=== PATIENT | female | born 1955 | race Caucasian/White ===

== ENCOUNTER → 2017-10-10 07:15 | Outpatient (CLI) | payer OTHER, SELFPAY ==
[2017-10-10 07:56] LABS: Add Manual Diff / Slide Review NO; Basophils Percent Auto 0.9 % (0-2); Eosinophils Percent Auto 2.6 % (2-4); Hematocrit 44.9 % (36-46); Hemoglobin 15.2 g/dL (12.0-16.0); Lymphocytes Percent Auto 30.1 % (25-40); Mean Corpuscular HGB Conc 33.9 % (30-36); Mean Corpuscular Hemoglobin 29.9 PG (26-34); Mean Corpuscular Volume 88.3 fL (80-100); Monocytes Percent Auto 8.9 % (3-14); Neutrophils Absolute Auto 2800 /uL (3000-5900); Neutrophils Percent Auto 57.5 % (50-75); Platelet Count 244 X10^3/uL (150-400); Red Blood Cell Count 5.09 X10^6/uL (4.0-5.2); Red Cell Distribution Width 12.9 % (11.6-14.8); White Blood Cell Count 4.9 X10^3/uL (4.5-11.0)
[2017-10-10 08:35] LABS: Alanine Aminotransferase 41 IU/L (9-52); Albumin 4.2 g/dL (3.5-5.0); Albumin Globulin Ratio 1.4 (1.0-2.8); Alkaline Phosphatase 78 U/L (38-126); Aspartate Aminotransferase 29 IU/L (14-36); BUN Creatinine Ratio 18.6 (6-22); Bilirubin Total 0.5 mg/dL (0.2-1.3); Blood Urea Nitrogen 13 mg/dL (7-17); Calcium 9.2 mg/dL (8.4-10.2); Carbon Dioxide 30 mmol/L (22-32); Chloride 101 mmol/L (98-107); Cholesterol 244 mg/dL (140-199); Estimated Glomerular Filt Rate > 60.0 mL/min (>60); Globulin 3.1 g/dL (1.7-4.1); Glucose 103 mg/dL (80-110); HDL Cholesterol 55 mg/dL (40-60); HEMOLYSIS < 15 (0-50); LDL Cholesterol Calculated 168 mg/dL (<100); Potassium 4.8 mmol/L (3.4-5.1); Sodium 141 mmol/L (137-145); Total Protein 7.3 g/dL (6.3-8.2); Triglycerides 103 mg/dL (35-150)
== END ==
PROVIDERS: PCP Family Medicine; Visit Provider Family Medicine
DX: I10 Essential (primary) hypertension (principal)
CPT/HCPCS: 36415; 80053; 80061; 85025

== ENCOUNTER → 2018-01-04 13:14 | Outpatient (CLI) | payer OTHER, SELFPAY ==
[2018-01-04 13:56] LABS: Appearance Urine UA SL CLOUDY; Bilirubin Urine UA NEGATIVE (NEGATIVE); Color Urine UA YELLOW; Glucose Urine UA NEGATIVE (Normal); Ketones Urine UA NEGATIVE (NEGATIVE); Leukocyte Esterase Urine UA 1+ (NEGATIVE); Nitrite Urine UA Negative (Negative); Occult Blood Urine UA 1+ (Negative); Protein Urine UA NEGATIVE (Negative); Urobilinogen Urine UA 0.2 E.U./dL (0.2)
[2018-01-04 14:08] LABS: Bacteria Urine Many (>30); Culture Indicated Urine Specimen Cultured; RBC Urine 1-5/HPF (0-5/HPF); Squamous Epithelial Cell Urine 0-1 /HPF; WBC Urine 10-30/HPF (0-5/HPF)
== END ==
PROVIDERS: Visit Provider Internal Medicine
DX: R39.9 Unspecified symptoms and signs involving the genitourinary system (principal)
CPT/HCPCS: 81001; 87077; 87086

== ENCOUNTER → 2018-06-19 14:29 | Outpatient (CLI) | payer OTHER, SELFPAY ==
--- NOTE | 2018-06-19 14:30 | DI.RAD.S_ITS ---
PROCEDURE: XR HAND RT MIN 3V INDICATIONS: right 3rd digit pain and swelling TECHNIQUE: 3 views of the hand(s) acquired. COMPARISON: None. FINDINGS: Bones: No fractures or dislocations. Carpal bones are normally aligned. No suspicious bony lesions. Soft tissues: No suspicious soft tissue calcifications. IMPRESSION: No fractures. No radiographic evidence of arthritic change. Dictated by: Carol Peguero M.D. on 06/19/2018 at 16:36 Approved by: Carol Peguero M.D. on 06/19/2018 at 16:40
== END ==
PROVIDERS: PCP Internal Medicine; Visit Provider Internal Medicine
DX: M79.644 Pain in right finger(s) (principal); M79.89 Other specified soft tissue disorders
CPT/HCPCS: 73130

== ENCOUNTER → 2018-09-27 08:00 | Outpatient (CLI) | payer OTHER, SELFPAY ==
--- NOTE | 2018-09-27 08:02 | DI.US.S_ITS ---
LIMITED ULTRASOUND OF LEFT BREAST: 09/27/2018 CLINICAL: Palpable left breast lump. Comparison is made to exams dated: 09/27/2018 mammogram - [facility], 11/22/2017 mammogram, 01/13/2016 mammogram, 01/09/2015 mammogram, and 06/22/2011 mammogram - [facility]. Color flow and real-time ultrasound of the left breast 1-4 o'clock region were performed. Damian scale images of the real-time examination were reviewed. Targeted ultrasound was performed in the region of the patient's reported focal palpable abnormality of the outer left breast from 1:00-4:00 position, with the patient localizing the palpable abnormality to the 4:00 posiiton at time of ultrasound. No underlying breast mass or abnormality is identified in the outer left breast from 1:00-4:00 position. The left breast implant is only partially imaged on this exam, and is partially obscured by reverberation artifact. IMPRESSION: BENIGN 1) No ultrasound findings to explain patient's reported focal palpable abnormality of the outer left breast at the site indicated by the patient. Recommend clinical follow-up for further evaluation and management of the patient's reported symptoms. 2) There is no sonographic evidence of malignancy in the imaged areas of the left breast. Return to annual screening mammography is recommended. The patient is advised to monitor her breasts and to return sooner for re-evaluation should she feel anything grow or change. This exam was interpreted at Station ID: [id number]. Electronically Signed By: Varun Glover M.D. ecl/:09/27/2018 09:18:43 letter sent: Clinical Evaluation Ultrasound BI-RADS: 2 Benign
--- NOTE | 2018-09-27 08:02 | DI.MG.S_ITS ---
BILATERAL DIGITAL DIAGNOSTIC MAMMOGRAM 3D/2D WITH AUGMENTATION: 09/27/2018 CLINICAL: Left breast mass. Comparison is made to exams dated: 11/22/2017 mammogram, 01/13/2016 mammogram, 01/09/2015 mammogram, and 06/22/2011 mammogram - [facility]. There are scattered fibroglandular elements in both breasts. There is a triangular marker overlying the skin of the upper outer left breast at the site of the patient's reported palpable abnormality. There is no underlying mammographic abnormality. There are bilateral breast implants. There is a bulge of the medial aspect of the left breast implant suggesting possible rupture. No other significant masses, calcifications, or other findings are seen in either breast. IMPRESSION: INCOMPLETE: NEEDS ADDITIONAL IMAGING EVALUATION 1) No mammographic abnormality to correlate with the site of the patient's reported focal palpable abnormality of the upper outer left breast. Targeted diagnostic ultrasound recommended for further evaluation, which will be performed immediately following this exam. 2) Bilateral breast implants, with a bulge of the medial aspect of the left breast implant suggesting possible rupture. This exam was interpreted at Station ID: [id number]. NOTE: For mammograms, a report in lay terms will be sent to the patient. Approximately 15% of breast malignancies will not be visualized mammographically. In the management of a palpable breast mass, a negative mammogram must not discourage biopsy of a clinically suspicious lesion. Electronically Signed By: Varun Glover M.D. ecl/:09/27/2018 09:14:26 ACR BI-RADS Category 0: Incomplete [id number]
== END ==
PROVIDERS: PCP Nurse Practitioner Family; Visit Provider Nurse Practitioner Family
DX: R92.8 Other abnormal and inconclusive findings on diagnostic imaging of breast (principal); N63.21 Unspecified lump in the left breast, upper outer quadrant; Z98.82 Breast implant status
CPT/HCPCS: 76642; 77066; G0279

== ENCOUNTER 2019-04-04 09:37 | Emergency (ER) | payer OTHER, SELFPAY ==
[2019-04-04 09:50] VITALS: BP 188/108; PULSE 83; RESP 16; TEMP 36.4; O2SAT 97; BMI 28.3
--- NOTE | 2019-04-04 10:04 | DI.US.S_ITS ---
PROCEDURE: US PERIPH VENOUS LOW EXTREM LT INDICATIONS: SWELLING AND PAIN TECHNIQUE: Real-time imaging, as well as color and pulse Doppler interrogation, were performed of the lower extremity deep veins from the inguinal ligament to the popliteal fossa. COMPARISON: None. FINDINGS: The common femoral, femoral and popliteal veins are normally compressible, and free of intraluminal thrombus. Color and pulse Doppler demonstrate normal phasic intraluminal flow. There is normal augmentation response to distal compression maneuver. IMPRESSION: Negative left lower extremity duplex ultrasound for DVT. Dictated by: Daron Marin M.D. on 04/04/2019 at 11:13 Approved by: Daron Marin M.D. on 04/04/2019 at 11:13
--- NOTE | 2019-04-04 10:08 | ED_ITS ---
HPI - Extremity Problem General Chief complaint: Extremity Problem,Nontraumatic Stated complaint: possible blood clot left leg Time Seen by Provider: 04/04/19 09:45 Source: patient Mode of arrival: Ambulatory Limitations: no limitations History of Present Illness HPI Narrative: Patient comes emergency department complaining of pain in her left lower leg and ankle area. She states that she has noticed some swelling and bruised appearance, but has had no trauma. She has a history of DVT and is concerned that she has developed another one. Patient denies fevers or chills. No chest pain or shortness breath. no bruising or bleeding anywhere else. No other complaints at this time. Related Data Home Medications Medication Instructions Recorded Confirmed CA PANTOTHENATE/FOLIC ACID/VIT 1 tab PO AMINS #0 09/05/11 09/19/18 (MULTIVITAMIN) Calcium Carbonate/Vitamin D 1 cap PO AMINS #0 09/05/11 09/19/18 (#CALCIUM) IBUPROFEN (#MOTRIN / ADVIL) 200 mg PO PRN #0 09/05/11 09/19/18 Inulin (Metamucil) 1 pow PO QDAY #0 12/20/11 09/19/18 biotin 5 mg tablet mg PO tab 06/19/18 09/19/18 magnesium oxide 400 mg PO BID cap 06/19/18 09/19/18 Previous Rx's Medication Instructions Recorded esomeprazole magnesium 20 mg 20 mg PO BID #180 cap 11/21/18 capsule,delayed release metoprolol tartrate 25 mg tablet 25 mg PO BID #180 tab 11/21/18 Allergies Allergy/AdvReac Type Severity Reaction Status Date / Time adhesive [ADHESIVE] Allergy Mild BLISTERS Verified 09/19/18 14:02 AND SCARRING adhesive tape [ADHESIVE TAPE] Allergy Mild Verified 09/19/18 14:02 codeine [CODEINE] Allergy Mild projectile Verified 09/19/18 14:02 vomiting diphenhydramine Allergy Mild makes her Verified 09/19/18 14:02 [DIPHENHYDRAMINE] feel like she's going crazy levofloxacin [LEVOFLOXACIN] Allergy Mild vein Verified 09/19/18 14:02 itching, burning,redness Penicillins [PENICILLINS] Allergy Mild severe Verified 09/19/18 14:02 hives prochlorperazine Allergy Mild projectile Verified 09/19/18 14:02 [PROCHLORPERAZINE] vomiting, feels like going crazy Sulfa (Sulfonamide Allergy Mild itching Verified 09/19/18 14:02 Antibiotics) after 5 [SULFA (SULFONAMIDE days on it ANTIBIOTICS)] morphine [MORPHINE] Allergy Unknown Verified 09/19/18 14:02 non stick gauze pads Allergy Unknown Uncoded 09/19/18 14:02 novacaine Allergy Unknown Uncoded 09/19/18 14:02 suture Allergy Unknown Uncoded 09/19/18 14:02 Review of Systems Constitutional Constitutional: Denies chills, Denies fatigue, Denies fever(s), Denies frequent falls, Denies lethargy and Denies weakness Eyes Eyes: Denies change in vision, Denies eye discharge, Denies irritation and Denies loss of vision ENT Ears, Nose, Mouth, and Throat: Denies change in voice, Denies dizziness, Denies neck pain, Denies sore throat and Denies throat swelling Cardiovascular Cardiovascular: Denies chest pain, Denies irregular heart rhythm, Denies lightheadedness, Denies palpitations, Denies dyspnea, Denies dyspnea on exertion and Denies orthopnea Respiratory Respiratory: Denies cough, Denies dyspnea, Denies dyspnea on exertion and Denies wheezing Gastrointestinal Gastrointestinal: Denies abdominal pain, Denies change in bowel habits, Denies diarrhea, Denies nausea and Denies vomiting Genitourinary Genitourinary: Denies hematuria, Denies flank pain, Denies urinary incontinence and Denies urinary urgency Musculoskeletal Musculoskeletal: Denies back pain, Denies muscle weakness, Denies neck pain, Denies numbness and Denies tingling Comments: Leg pain Integumentary/Breasts Skin/Breast: Denies pruritus, Denies erythema, Denies rash and Denies wounds Neurologic Neurologic: Denies behavioral changes, Denies confusion, Denies dizziness, Denies frequent falls, Denies loss of vision, Denies numbness, Denies tingling and Denies weakness Psychiatric Psychiatric: Denies anxiety, Denies behavioral changes, Denies confusion, Denies depression, Denies homicidal ideation and Denies suicidal ideation Endocrine Endocrine: Denies fatigue, Denies flushing and Denies palpitations Hematologic/Lymphatic Hematologic/Lymphatic: Denies easy bruising Allergic/Immunologic Allergic/Immunologic: Denies urticaria, Denies throat swelling and Denies wheezing Patient History Medical History Cystocele with rectocele (Chronic 07/05/17) Diverticular disease of colon (Inactive 12/03/02) GERD (gastroesophageal reflux disease) (Chronic 06/17/11) Left knee injury (Resolved 05/20/13) 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) Unspecified essential hypertension (Chronic) Surgical History History of bilateral salpingo-oophorectomy (BSO) (Resolved 12/20/11) History of colonoscopy (Resolved 03/30/16) History of esophagogastroduodenoscopy (EGD) (Resolved 03/30/16) Status post small bowel resection (Resolved 09/04/11) Social History marital status: lives independently: Yes caregiver/support person: No Smoking Status: Former smoker alcohol intake: current alcohol intake frequency: a few times a week Alcohol type: wine Substance Use Type: does not use Exam Initial Vital Signs Initial Vital Signs: Vital Signs Temperature 97.5 F L 04/04/19 09:50 Pulse Rate 83 04/04/19 09:50 Respiratory Rate 16 04/04/19 09:50 Blood Pressure 188/108 H 04/04/19 09:50 Pulse Oximetry 97 04/04/19 09:50 Const General: cooperative and well developed Nutritional Appearance: well nourished Orientation: alert, awake, oriented x3 and not confused [facility] Head: normocephalic and atraumatic Ears: external ears normal Nose: external nose normal and No nasal discharge Face and sinus: face symmetric and No dry mucous membranes Mouth: oral mucosae normal and moist mucous membranes Teeth and gingiva: dentition normal Eyes General: appearance normal, both eyes and all related structures Eyelids: eyelids normal Conjunctivae: conjunctivae normal Sclera: sclerae normal Pupils: PERRL EOM: EOM intact bilaterally Neck Neck: normal visual inspection, trachea midline, No lymphadenopathy, No midline deformity and No JVD Lymphatic: No lymphedema Chest Chest: normal inspection of the chest Resp Effort & Inspection: normal respiratory effort, able to speak in complete sentences, no respiratory distress and no use of accessory muscles Auscultation: clear to auscultation bilaterally, no rales, no rhonchi and no wheezes Cardio Rate: regular rate Rhythm: regular rhythm Heart Sounds: no click, no gallops, no murmurs and no rubs Pulses: normal peripheral pulses GI Inspection: non-distended Palpation: soft, no hepatosplenomegaly, No guarding, No pulsatile mass and No tender Auscultation: normal bowel sounds Back/Spine/Pelvis Back: No CVA tenderness Cervical Spine: cervical ROM normal and No pain with cervical ROM Thoracic/Lumbar Spine: thoracic and lumbar spine normal to inspection Skin General: no rashes or lesions noted, No jaundice and No petechiae Neuro General: alert, oriented x3, gait normal and no focal motor deficits Speech: speech normal Extrem General: full ROM and no calf tenderness Other: Patient has an appearance of bruising and swelling on the anterior aspect and lateral aspect of her left ankle. No palpable cords. Psych Appearance: well kempt Mental Status: mental status grossly normal Attitude: cooperative Thought Content: normal and suicidality Judgment: judgment good Course Course Course Narrative: Patient was worked up with ultrasound of her left lower extremity, which was negative for DVT. We have discussed home management of the symptoms, as well as the usual indications for return. Orders Ordered: ED Orders 04/04/19 10:04 US [facility] venous low extrem lt Stat Vital Signs Vital signs: Vital Signs - 8 hr 04/04/19 09:50 Temperature 97.5 F L Pulse Rate 83 Respiratory Rate 16 Blood Pressure 188/108 H Pulse Oximetry 97 MDM - Extremity (Nontraumatic) Medical Records Attestation: I reviewed the patient's medical records. Imaging Data Venous US: Radiologist's impression: PROCEDURE: US [facility] VENOUS LOW EXTREM LT INDICATIONS: SWELLING AND PAIN TECHNIQUE: Real-time imaging, as well as color and pulse Doppler interrogation, were performed of the lower extremity deep veins from the inguinal ligament to the popliteal fossa. COMPARISON: None. FINDINGS: The common femoral, femoral and popliteal veins are normally compressible, and free of intraluminal thrombus. Color and pulse Doppler demonstrate normal phasic intraluminal flow. There is normal augmentation response to distal compression maneuver. IMPRESSION: Negative left lower extremity duplex ultrasound for DVT. Dictated by: Daron Marin M.D. on 04/04/2019 at 11:13 Approved by: Daron Marin M.D. on 04/04/2019 at 11:13 Discharge Plan Departure Patient Disposition: Home Clinical Impression: Contusion Qualifiers: Encounter type: initial encounter Contusion area: ankle Laterality: left Qualified Code(s): S90.02XA - Contusion of left ankle, initial encounter Discharge Date/Time: 04/04/19 12:08 Instructions: DI for Contusion Activity Restrictions/Additional Instructions: Your ultrasound is negative for blood clot. It is not clear what caused the bruising and swelling of your ankle. However, there is no evidence of an emergent condition at this time. Please follow up with your doctor, as needed. Prescriptions: No Action CA PANTOTHENATE/FOLIC ACID/VIT (MULTIVITAMIN) 1 tab PO AMINS Qty: 0 RF: 0 Calcium Carbonate/Vitamin D (#CALCIUM) 1 cap PO AMINS Qty: 0 RF: 0 IBUPROFEN (#MOTRIN / ADVIL) 200 mg PO PRN Qty: 0 RF: 0 Inulin (Metamucil) 1 pow PO QDAY Qty: 0 RF: 0 metoprolol tartrate 25 mg tablet 25 mg PO BID Qty: 180 RF: 1 esomeprazole magnesium [Nexium] 20 mg capsule,delayed release(DR/EC) 20 mg PO BID Qty: 180 RF: 1 magnesium oxide 400 mg capsule 400 mg PO BID RF: 0 biotin 5 mg tablet PO RF: 0 Referrals: Samuel Underwood ARNP [Primary Care Provider] -
[2019-04-04 11:10] VITALS: BP 141/90; PULSE 84; RESP 16; O2SAT 92
== END 2019-04-04 12:08 | disposition home or self-care (01) ==
PROVIDERS: Emergency Provider Emergency Medicine; PCP Nurse Practitioner Family
DX: S90.02XA Contusion of left ankle, initial encounter (principal); M79.662 Pain in left lower leg
CPT/HCPCS: 93971; 99282; 99283

== ENCOUNTER 2019-06-02 08:28 | Emergency (ER) | payer OTHER, SELFPAY ==
[2019-06-02] VITALS (8 sets, daily range): BP systolic 123–180; BP diastolic 68–87; PULSE 73–81; RESP 14–20; TEMP 36.3–36.7; O2SAT 95–99; BMI 28.3
--- NOTE | 2019-06-02 08:38 | DI.RAD.S_ITS ---
PROCEDURE: XR SOFT TISSUE NECK INDICATIONS: Possible epiglottitis TECHNIQUE: 2 views of the neck were acquired. COMPARISON: None. FINDINGS: Airway: The airway appears patent. Soft tissues: In this patient with this given history, scrutiny is given to the epiglottis. The epiglottis is not well displayed on the lateral image, as is superiorly angulated and compressing the valleculae. Prevertebral soft tissues are normal in thickness. The aryepiglottic folds appear normal. No soft tissue gas. Bones: No suspicious bony lesions. Visualized cervical spine is normally aligned. Age-appropriate lower cervical spine degenerative changes are seen. IMPRESSION: The epiglottis is not well-seen on this study. If clinically appropriate, please consider a dedicated CT of the neck with IV contrast for further evaluation. Dictated by: Ariel Rinaldi M.D. on 06/02/2019 at 8:20 Approved by: Ariel Rinaldi M.D. on 06/02/2019 at 8:22
[2019-06-02 08:49] LABS: Add Manual Diff / Slide Review NO; Basophils Absolute Auto 100 /uL (0-100); Basophils Percent Auto 0.9 % (0-2); Eosinophils Absolute Auto 200 /uL (0-450); Hematocrit 44.9 % (36-46); Hemoglobin 15.2 g/dL (12.0-16.0); Lymphocytes Absolute Auto 1900 /uL (1100-4500); Lymphocytes Percent Auto 17.2 % (25-40); Mean Corpuscular HGB Conc 33.9 % (30-36); Mean Corpuscular Volume 88.5 fL (80-100); Monocytes Absolute Auto 800 /uL (0-900); Monocytes Percent Auto 7.4 % (3-14); Neutrophils Absolute Auto 7900 /uL (1500-7000); Neutrophils Percent Auto 72.5 % (50-75); Platelet Count 266 X10^3/uL (150-400); Red Blood Cell Count 5.07 X10^6/uL (4.0-5.2); Red Cell Distribution Width 13.3 % (11.6-14.8); White Blood Cell Count 10.8 X10^3/uL (4.5-11.0)
[2019-06-02] MEDS: methylPREDNISolone 125 MG/2 ML VIAL IV (08:49)
[2019-06-02] MEDS: SODIUM CHLORIDE 0.9% 1,000 ML 125 ML IV (08:49)
[2019-06-02] MEDS: EPINEPHrine 1 MG/ML 0.3 MG IM (08:51)
--- NOTE | 2019-06-02 08:52 | ED.URI ---
HPI - URI/Sore Throat General Chief Complaint: Upper Respiratory Symptoms Stated Complaint: obstructed airway Time Seen by Provider: 06/02/19 08:37 Source: patient and family Mode of arrival: Wheelchair Limitations: other (Problems breathing) History of Present Illness HPI Narrative: Most of the HPI was provided by who is at bedside. Patient is a 63-year-old female. Past couple days has had URI like symptoms. Congestion. Cough. Has been taking DayQuil and NyQuil. This morning started having symptoms in her throat in fullness. Was coughing. Had a fairly sudden onset of problems breathing and swallowing. Arrived in a wheelchair. A tripod position. Afebrile. Maintaining airway however had a muffled voice. Could not lay flat. Related Data Home Medications Medication Instructions Recorded Confirmed CA PANTOTHENATE/FOLIC ACID/VIT 1 tab PO AMINS #0 09/05/11 09/19/18 (MULTIVITAMIN) Calcium Carbonate/Vitamin D 1 cap PO AMINS #0 09/05/11 09/19/18 (#CALCIUM) IBUPROFEN (#MOTRIN / ADVIL) 200 mg PO PRN #0 09/05/11 09/19/18 Inulin (Metamucil) 1 pow PO QDAY #0 12/20/11 09/19/18 biotin 5 mg tablet mg PO tab 06/19/18 09/19/18 magnesium oxide 400 mg PO BID cap 06/19/18 09/19/18 Previous Rx's Medication Instructions Recorded esomeprazole magnesium 20 mg 20 mg PO BID #180 cap 11/21/18 capsule,delayed release metoprolol tartrate 25 mg tablet 25 mg PO BID #180 tab 11/21/18 epinephrine [EpiPen 2-Cholo] 0.3 mg IM Q15M PRN #1 each 06/02/19 prednisone 40 mg PO DAILY 5 Days #10 tab 06/02/19 Allergies Allergy/AdvReac Type Severity Reaction Status Date / Time adhesive [ADHESIVE] Allergy Mild BLISTERS Verified 09/19/18 14:02 AND SCARRING adhesive tape [ADHESIVE TAPE] Allergy Mild Verified 09/19/18 14:02 codeine [CODEINE] Allergy Mild projectile Verified 09/19/18 14:02 vomiting diphenhydramine Allergy Mild makes her Verified 09/19/18 14:02 [DIPHENHYDRAMINE] feel like she's going crazy levofloxacin [LEVOFLOXACIN] Allergy Mild vein Verified 09/19/18 14:02 itching, burning,redness Penicillins [PENICILLINS] Allergy Mild severe Verified 09/19/18 14:02 hives prochlorperazine Allergy Mild projectile Verified 09/19/18 14:02 [PROCHLORPERAZINE] vomiting, feels like going crazy Sulfa (Sulfonamide Allergy Mild itching Verified 09/19/18 14:02 Antibiotics) after 5 [SULFA (SULFONAMIDE days on it ANTIBIOTICS)] morphine [MORPHINE] Allergy Unknown Verified 09/19/18 14:02 non stick gauze pads Allergy Unknown Uncoded 09/19/18 14:02 novacaine Allergy Unknown Uncoded 09/19/18 14:02 suture Allergy Unknown Uncoded 09/19/18 14:02 Review of Systems Constitutional Constitutional: Denies fever(s) ENT Ears, Nose, Mouth, and Throat: Denies vertigo, Denies mouth lesions, Reports nasal congestion, Reports sinus pressure, Reports sore throat, Reports throat swelling and Denies tongue swelling Cardiovascular Cardiovascular: Denies chest pain and Reports dyspnea Respiratory Respiratory: Denies cough and Reports dyspnea Gastrointestinal Gastrointestinal: Denies abdominal pain, Denies nausea and Denies vomiting Integumentary/Breasts Skin/Breast: Denies lesions and Denies rash Neurologic Neurologic: Denies behavioral changes and Denies vertigo Psychiatric Psychiatric: Denies behavioral changes Hematologic/Lymphatic Hematologic/Lymphatic: Denies easy bleeding and Denies easy bruising Allergic/Immunologic Allergic/Immunologic: Reports throat swelling and Denies tongue swelling Patient History Medical History Cystocele with rectocele (Chronic 07/05/17) Diverticular disease of colon (Inactive 12/03/02) GERD (gastroesophageal reflux disease) (Chronic 06/17/11) Left knee injury (Resolved 05/20/13) 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) Unspecified essential hypertension (Chronic) Social History marital status: lives independently: Yes caregiver/support person: No Smoking Status: Former smoker alcohol intake: current Smoking Status: Former smoker alcohol intake frequency: a few times a week Alcohol type: wine Substance Use Type: does not use Exam Initial Vital Signs Initial Vital Signs: Vital Signs Pulse Rate 79 06/02/19 09:00 Respiratory Rate 20 06/02/19 09:00 Blood Pressure 148/87 H 06/02/19 09:00 Pulse Oximetry 97 06/02/19 09:00 Const General: cooperative, well groomed and No acute distress Limitations: mental status not altered HENMT Head: normal to inspection and normocephalic Nose: external nose normal Face and sinus: normal facial exam Mouth: moist mucous membranes Throat: uvula midline and uvular edema Resp Effort & Inspection: normal respiratory effort Auscultation: clear to auscultation bilaterally Cardio Rate: regular rate Rhythm: regular rhythm Skin Lesions: no lesions Rashes: no rashes Neuro General: alert and awake Cognition: normal cognition Speech: speech normal Extrem General: normal to inspection and capillary refill normal Psych Appearance: grossly normal and well kempt Course Orders Ordered: ED Orders 06/02/19 08:38 XR soft tissue neck Stat 06/02/19 08:41 Complete Blood Count AUTO DIFF Stat Comprehensive Metabolic Panel Stat Lipase Stat 06/02/19 11:58 Influenza A & B (PCR) Stat Sodium Chloride (Normal Saline 0.9%) 1,000 mls @ 125 mls/hr IV CONT KELLY Last Admin: 06/02/19 08:49 Dose: 125 mls/hr Documented by: THEE Discontinued Medications Epinephrine (Epinephrine Racemic) 0.5 ml INH NOW ONE Stop: 06/02/19 09:23 Last Admin: 06/02/19 09:35 Dose: 0.5 ml Documented by: SANTY Epinephrine HCl (Adrenalin) 0.3 mg IM NOW ONE Stop: 06/02/19 08:42 Last Admin: 06/02/19 08:51 Dose: 0.3 mg Documented by: THEE Famotidine (Pepcid) 20 mg in 50 mls @ 200 mls/hr IV NOW ONE Stop: 06/02/19 08:52 Last Infusion: 06/02/19 09:18 Dose: 0 mls/hr Documented by: Admin: 06/02/19 08:53 Dose: 200 mls/hr Documented by: THEE Ketorolac Tromethamine (Toradol) 30 mg IV NOW ONE Stop: 06/02/19 10:16 Last Admin: 06/02/19 10:18 Dose: 30 mg Documented by: THEE Methylprednisolone (Solu-Medrol 125 Mg Vial) 125 mg IV NOW ONE Stop: 06/02/19 08:39 Last Admin: 06/02/19 08:49 Dose: 125 mg Documented by: THEE Vital Signs Vital signs: Vital Signs - 8 hr 06/02/19 09:00 06/02/19 09:15 06/02/19 09:36 Temperature 97.3 F L Pulse Rate 79 79 76 Respiratory Rate 20 20 16 Blood Pressure 180/84 H Blood Pressure [Left Arm] 148/87 H Pulse Oximetry 97 97 98 06/02/19 09:51 06/02/19 10:15 06/02/19 11:30 Temperature Pulse Rate 81 73 81 Respiratory Rate 20 17 14 Blood Pressure Blood Pressure [Left Arm] 154/82 H 137/68 123/69 Pulse Oximetry 97 95 96 MDM - URI/Sore Throat Lab Data Attestation: I reviewed the patient's lab results. Result diagrams: 06/02/19 08:41 06/02/19 08:41 Labs: Lab Results 06/02/19 06/02/19 06/02/19 Range/Units 08:41 08:41 11:58 WBC 10.8 (4.5-11.0) X10^3/uL RBC 5.07 (4.0-5.2) X10^6/uL Hgb 15.2 (12.0-16.0) g/dL Hct 44.9 (36-46) % MCV 88.5 (80-100) fL MCH 30.0 (26-34) PG MCHC 33.9 (30-36) % RDW 13.3 (11.6-14.8) % Plt Count 266 (150-400) X10^3/uL Neut % (Auto) 72.5 (50-75) % Lymph % (Auto) 17.2 L (25-40) % Sanders % (Auto) 7.4 (3-14) % Eos % (Auto) 2.0 (2-4) % Baso % (Auto) 0.9 (0-2) % Neut # (Auto) 7900 H (5180-5368) /uL Lymph # (Auto) 1900 (4962-8041) /uL Sanders # (Auto) 800 (0-900) /uL Eos # (Auto) 200 (0-450) /uL Baso # (Auto) 100 (0-100) /uL Sodium 140 (137-145) mmol/L Potassium 4.2 (3.4-5.1) mmol/L Chloride 106 (98-107) mmol/L Carbon Dioxide 25 (22-32) mmol/L BUN 10 (7-17) mg/dL Creatinine 0.70 (0.52-1.04) mg/dL Estimated GFR > 60.0 (>60) mL/min BUN/Creatinine Ratio 14.3 (6-22) Glucose 102 (80-110) mg/dL Calcium 9.4 (8.4-10.2) mg/dL Total Bilirubin 0.6 (0.2-1.3) mg/dL AST 37 H (14-36) IU/L ALT 37 H (<35) IU/L Alkaline Phosphatase 101 (38-126) U/L Total Protein 7.7 (6.3-8.2) g/dL Albumin 4.4 (3.5-5.0) g/dL Globulin 3.3 (1.7-4.1) g/dL Albumin/Globulin Ratio 1.3 (1.0-2.8) Lipase 141 (23-300) U/L Influenza A (RT-PCR) Flu a negative (NEGATIVE) Influenza B (RT-PCR) Flu b negative (NEGATIVE) Point of Care Testing Rapid Strep A Negative Imaging Data soft tissue neck: Radiologist's Impression: [address] [address] XRay Report Signed Patient: Becki Potter LMR#: [id number] : 7Acct:[id number] Age/Sex: 63 / FDate of Service: 06/02/19 Loc: ED Accession Number: [id number] Procedure: XR soft tissue neck Ordering Provider: Alfredo Rogers D.O. PROCEDURE: XR SOFT TISSUE NECK INDICATIONS: Possible epiglottitis TECHNIQUE: 2 views of the neck were acquired. COMPARISON: None. FINDINGS: Airway: The airway appears patent. Soft tissues: In this patient with this given history, scrutiny is given to the epiglottis. The epiglottis is not well displayed on the lateral image, as is superiorly angulated and compressing the valleculae. Prevertebral soft tissues are normal in thickness. The aryepiglottic folds appear normal. No soft tissue gas. Bones: No suspicious bony lesions. Visualized cervical spine is normally aligned. Age-appropriate lower cervical spine degenerative changes are seen. IMPRESSION: The epiglottis is not well-seen on this study. If clinically appropriate, please consider a dedicated CT of the neck with IV contrast for further evaluation. Dictated by: Ariel Rinaldi M.D. on 06/02/2019 at 8:20 Approved by: Ariel Rinaldi M.D. on 06/02/2019 at 8:22 MDM Narrative Medical decision making narrative: Patient arrived try potting in the wheelchair. Was tachypneic however not hypoxic. No rash. Her only new exposure was the use of DayQuil and NyQuil for her upper respiratory symptoms. Initial review showed what appeared to be a swelling of her uvula. X-ray not definitive for epiglottitis however she is not febrile and does not have an elevated white count. After the medications her symptoms essentially resolved. She was able to lay flat. Was able to talk. Was able to sleep. Was never hypoxic during this time. I did consult anesthesia at the beginning of the event to be available in case patient needed intubated. Unsure the exact etiology of her symptoms. Could be environmental. Could be the DayQuil and NyQuil. She is allergic to Benadryl. Low suspicion for foreign body. Will send home with couple days of steroids. Also gave an EpiPen. 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 They were given strict return precautions. They expressed understanding and agreement with plan. Discharge Plan Departure Patient Disposition: Home Clinical Impression: Uvular edema Instructions: DI for Viral Upper Respiratory Infection -- Adult, DI for General Allergic Reactions Activity Restrictions/Additional Instructions: Recommend that you avoid the DayQuil and NyQuil as this may be the cause of your symptoms. Take the prednisone like we discussed. Contact your primary provider for follow-up. Return to the emergency department for any new or worsening symptoms Prescriptions: New prednisone 20 mg tablet 40 mg PO DAILY 5 Days Qty: 10 RF: 0 epinephrine [EpiPen 2-Cholo] 0.3 mg/0.3 mL auto-injector 0.3 mg IM Q15M PRN (Reason: anaphylaxis) Qty: 1 RF: 0 No Action CA PANTOTHENATE/FOLIC ACID/VIT (MULTIVITAMIN) 1 tab PO AMINS Qty: 0 RF: 0 Calcium Carbonate/Vitamin D (#CALCIUM) 1 cap PO AMINS Qty: 0 RF: 0 IBUPROFEN (#MOTRIN / ADVIL) 200 mg PO PRN Qty: 0 RF: 0 Inulin (Metamucil) 1 pow PO QDAY Qty: 0 RF: 0 metoprolol tartrate 25 mg tablet 25 mg PO BID Qty: 180 RF: 1 esomeprazole magnesium [Nexium] 20 mg capsule,delayed release(DR/EC) 20 mg PO BID Qty: 180 RF: 1 magnesium oxide 400 mg capsule 400 mg PO BID RF: 0 biotin 5 mg tablet PO RF: 0 Referrals: Samuel Underwood ARNP [Primary Care Provider] -
[2019-06-02] MEDS: FAMOTIDINE 20 MG/50 ML PIGGYBACK 200 MG IV (08:53)
[2019-06-02 08:59] LABS: Alanine Aminotransferase 37 IU/L (<35); Albumin 4.4 g/dL (3.5-5.0); Albumin Globulin Ratio 1.3 (1.0-2.8); Alkaline Phosphatase 101 U/L (38-126); Aspartate Aminotransferase 37 IU/L (14-36); BUN Creatinine Ratio 14.3 (6-22); Bilirubin Total 0.6 mg/dL (0.2-1.3); Blood Urea Nitrogen 10 mg/dL (7-17); Calcium 9.4 mg/dL (8.4-10.2); Carbon Dioxide 25 mmol/L (22-32); Chloride 106 mmol/L (98-107); Estimated Glomerular Filt Rate > 60.0 mL/min (>60); Globulin 3.3 g/dL (1.7-4.1); Glucose 102 mg/dL (80-110); HEMOLYSIS < 15 (0-50); Lipase 141 U/L (23-300); Potassium 4.2 mmol/L (3.4-5.1); Sodium 140 mmol/L (137-145); Total Protein 7.7 g/dL (6.3-8.2)
--- NOTE | 2019-06-02 09:13 | PC.NURSE ---
pt arrived to ER, unable to speak in full sentences, leaning forward for position of comfort. dr. Rogers at bedside
[2019-06-02] MEDS: RACEPINEPHRINE 0.5 ML NEB INH (09:35)
[2019-06-02] MEDS: KETOROLAC 60 MG/2 ML VIAL 30 MG IV (10:18)
[2019-06-02 12:33] LABS: Influenza A - CEPHEID Flu A NEGATIVE (NEGATIVE); Influenza B - CEPHEID Flu B NEGATIVE (NEGATIVE)
== END 2019-06-02 13:11 | disposition home or self-care (01) ==
PROVIDERS: Emergency Provider Emergency Medicine; PCP Nurse Practitioner Family
DX: K13.79 Other lesions of oral mucosa (principal); J02.9 Acute pharyngitis, unspecified; R06.00 Dyspnea, unspecified
CPT/HCPCS: 36415; 70360; 80053; 83690; 85025; 87502; 87880; 94640; 96361; 96365; 96372; 96375; 99284; 99285; J0171; J1885; J2930

== ENCOUNTER → 2019-11-20 12:53 | Outpatient (CLI) | payer OTHER, SELFPAY ==
--- NOTE | 2019-11-20 12:54 | DI.RAD.S_ITS ---
PROCEDURE: XR SHOULDER RT MIN 2V INDICATIONS: pain to R shoulder, r/o bony abnormality TECHNIQUE: 2 views of the shoulder were acquired. COMPARISON: None. FINDINGS: Bones: No fractures or dislocations. No suspicious bony lesions. Visualized ribs appear intact. Soft tissues: No suspicious soft tissue calcifications. IMPRESSION: No fracture. No osseous lesion. If symptoms and/or clinical suspicion for pathology persists, further assessment with advanced imaging (e.g. CT, MRI or bone scan) may be helpful. Dictated by: Jennifer Allan MD, PhD on 11/20/2019 at 15:33 Approved by: Jennifer Allan MD, PhD on 11/20/2019 at 15:34
== END ==
PROVIDERS: PCP Nurse Practitioner Family; Referring Provider Physician Assistant; Visit Provider Physician Assistant
DX: M25.511 Pain in right shoulder (principal)
CPT/HCPCS: 73030

== ENCOUNTER → 2019-12-31 07:09 | Outpatient (CLI) | payer OTHER, SELFPAY ==
[2019-12-31 07:56] LABS: INR 0.9 (0.9-1.3); Prothrombin Time 10.1 SECONDS (10.1-12.7)
[2019-12-31 08:01] LABS: Alanine Aminotransferase 30 IU/L (<35); Albumin 4.5 g/dL (3.5-5.0); Albumin Globulin Ratio 1.5 (1.0-2.8); Alkaline Phosphatase 88 U/L (38-126); Aspartate Aminotransferase 29 IU/L (14-36); Bilirubin Total 0.5 mg/dL (0.2-1.3); Bilirubin Unconjugated 0.3 mg/dL (0.0-1.1); Blood Urea Nitrogen 13 mg/dL (7-17); Carbon Dioxide 23 mmol/L (22-32); Chloride 106 mmol/L (98-107); Cholesterol 236 mg/dL (140-199); Creatine Kinase 93 U/L (30-135); Estimated Glomerular Filt Rate > 60.0 mL/min (>60); Globulin 3.1 g/dL (1.7-4.1); Glucose 114 mg/dL (80-110); HDL Cholesterol 47 mg/dL (40-60); HEMOLYSIS < 15 (0-50); LDL Cholesterol Calculated 160 mg/dL (<100); Magnesium 2.2 mg/dL (1.6-2.3); Potassium 4.4 mmol/L (3.4-5.1); Sodium 137 mmol/L (137-145); Total Protein 7.6 g/dL (6.3-8.2); Triglycerides 144 mg/dL (35-150)
[2019-12-31 08:11] LABS: HEMOLYSIS < 15 (0-50); Iron 73 ug/dL (37-170)
[2019-12-31 08:22] LABS: Percent Iron Saturation 23 % (15-50); Total Iron Binding Capacity 322 ug/dL (265-497); Transferrin 260 mg/dL (206-381)
[2019-12-31 08:43] LABS: TSH w/ Reflex to FT4 4.77 uIU/mL (0.47-4.68)
[2019-12-31 09:08] LABS: Free T4, Direct Thyroxine 1.02 ng/dL (0.78-2.19)
[2020-01-01 03:36] LABS: Ceruloplasmin 30.7 mg/dL (19.0-39.0)
[2020-01-01 08:11] LABS: Hepatitis B Surf Ab Qualitativ Reactive (.)
[2020-01-01 15:16] LABS: Hepatitis B Surface Antigen NEGATIVE s/c (NEGATIVE)
[2020-01-02 11:09] LABS: Smooth Muscle Antibody 8 Units (0-19)
[2020-01-02 16:36] LABS: ANA Screen, IFA Positive (.); Homogeneous Pattern >1:1280 (.)
[2020-01-03 03:36] LABS: Deamidated Gliadin IgA 3 units (0-19); Deamidated Gliadin IgG 3 units (0-19); IGA 225 mg/dL (87-352); t-Transglutaminase IgA <2 U/mL (0-3)
== END ==
PROVIDERS: PCP Internal Medicine; Referring Provider Internal Medicine; Visit Provider Internal Medicine
DX: R74.0 Nonspecific elevation of levels of transaminase and lactic acid dehydrogenase [LDH] (principal); I10 Essential (primary) hypertension; K21.9 Gastro-esophageal reflux disease without esophagitis
CPT/HCPCS: 36415; 80053; 80061; 80076; 82390; 82550; 82784; 83516; 83540; 83550; 83735; 84439; 84443; 85610; 86038; 86706; 87340

== ENCOUNTER → 2020-05-16 11:40 | Outpatient (CLI) | payer OTHER, SELFPAY ==
[2020-05-16 13:06] LABS: Add Manual Diff / Slide Review NO; Basophils Absolute Auto 0 /uL (0-100); Basophils Percent Auto 0.7 % (0-2); Eosinophils Absolute Auto 200 /uL (0-450); Eosinophils Percent Auto 3.7 % (2-4); Hematocrit 41.9 % (36-46); Hemoglobin 13.8 g/dL (12.0-16.0); Lymphocytes Absolute Auto 1400 /uL (1100-4500); Lymphocytes Percent Auto 27.3 % (25-40); Mean Corpuscular HGB Conc 32.9 % (30-36); Mean Corpuscular Volume 88.2 fL (80-100); Monocytes Absolute Auto 400 /uL (0-900); Monocytes Percent Auto 8.6 % (3-14); Neutrophils Absolute Auto 3000 /uL (1500-7000); Neutrophils Percent Auto 59.7 % (50-75); Platelet Count 200 X10^3/uL (150-400); Red Blood Cell Count 4.75 X10^6/uL (4.0-5.2); Red Cell Distribution Width 13.6 % (11.6-14.8)
[2020-05-16 13:45] LABS: Alanine Aminotransferase 21 IU/L (<35); Albumin Globulin Ratio 1.4 (1.0-2.8); Alkaline Phosphatase 81 U/L (38-126); Aspartate Aminotransferase 29 IU/L (14-36); BUN Creatinine Ratio 13.8 (6-22); Bilirubin Total 0.3 mg/dL (0.2-1.3); Blood Urea Nitrogen 8 mg/dL (7-17); Calcium 8.8 mg/dL (8.4-10.2); Carbon Dioxide 31 mmol/L (22-32); Chloride 103 mmol/L (98-107); Estimated Glomerular Filt Rate > 60.0 mL/min (>60); Globulin 2.9 g/dL (1.7-4.1); Glucose 89 mg/dL (80-110); HEMOLYSIS < 15 (0-50); Sodium 137 mmol/L (137-145); Total Protein 6.9 g/dL (6.3-8.2)
[2020-05-16 13:54] LABS: Procalcitonin < 0.05 ng/mL (<0.5)
== END ==
PROVIDERS: PCP Internal Medicine; Referring Provider Family Medicine; Visit Provider Family Medicine
DX: K57.30 Diverticulosis of large intestine without perforation or abscess without bleeding (principal); K57.92 Diverticulitis of intestine, part unspecified, without perforation or abscess without bleeding
CPT/HCPCS: 36415; 80053; 84145; 85025

== ENCOUNTER → 2020-07-14 08:15 | Outpatient (CLI) | payer OTHER, SELFPAY ==
[2020-07-14 09:08] LABS: BUN Creatinine Ratio 22.4 (6-22); Blood Urea Nitrogen 15 mg/dL (7-17); Calcium 9.3 mg/dL (8.4-10.2); Carbon Dioxide 26 mmol/L (22-32); Chloride 101 mmol/L (98-107); Estimated Glomerular Filt Rate > 60.0 mL/min (>60); Glucose 102 mg/dL (80-110); HEMOLYSIS < 15 (0-50); Potassium 4.1 mmol/L (3.4-5.1); Sodium 135 mmol/L (137-145)
[2020-07-14 09:23] LABS: Free T4, Direct Thyroxine 1.04 ng/dL (0.78-2.19)
[2020-07-14 09:37] LABS: Thyroid Stimulating Hormone 2.78 uIU/mL (0.47-4.68)
== END ==
PROVIDERS: PCP Internal Medicine; Referring Provider Internal Medicine; Visit Provider Internal Medicine
DX: I10 Essential (primary) hypertension (principal); K21.9 Gastro-esophageal reflux disease without esophagitis; K57.30 Diverticulosis of large intestine without perforation or abscess without bleeding
CPT/HCPCS: 36415; 80048; 84439; 84443

== ENCOUNTER 2021-03-11 07:30 | Outpatient (RCR) | payer OTHER, SELFPAY ==
--- NOTE | 2021-02-25 15:13 | PT.OIE ---
Current Diagnoses Other specified disorders of muscle (02/25/21) Incomplete uterovaginal prolapse (02/25/21) Past Medical History (Last Updated 02/02/21 @ 22:19 by Shelly Delarosa) Allergies Cardiac arrhythmia Cervical spine disease Chicken pox Chronic back pain Coronary artery spasm Cystocele with rectocele (07/05/17) Deep vein thrombosis Diverticular disease of colon (12/03/02) Esophageal ring Fibroids GERD (gastroesophageal reflux disease) (06/17/11) Hearing loss Hemorrhoid History of back surgery History of bilateral salpingo-oophorectomy (BSO) (12/20/11) History of breast biopsy History of section History of colonoscopy (03/30/16) History of esophagogastroduodenoscopy (EGD) (03/30/16) History of vein stripping Irritable bowel syndrome Left knee injury (05/20/13) Measles Melanoma Migraines Mumps Plantar warts Psoriasis Rubella Ruptured tympanic membrane 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) Status post Nahun fundoplication (~09/2020) Status post small bowel resection (09/04/11) Transaminitis Unspecified essential hypertension Past Surgical History (Last Updated 02/02/21 @ 22:10 by Shelly Delarosa) Anesthesia History of back surgery History of bilateral salpingo-oophorectomy (BSO) (12/20/11) History of breast biopsy History of section History of colonoscopy (03/30/16) History of esophagogastroduodenoscopy (EGD) (03/30/16) History of vein stripping Status post Nahun fundoplication (~09/2020) Status post small bowel resection (09/04/11) Visit Care Team Role Provider Type Blade Rodríguez MD Family Provider Physician Primary Care Provider Specialty: Internal Medicine Address: [address] [place] [address], [facility] [address], [place], [address] Email: [email or web address] Merna Justin MD Attending Provider Physician Referring Provider Specialty: TRAINING AND DEVELOPMENT PROFESSIONAL Address: [address] [place] [address] [address] [place] [address], [address] Email: [email or web address] Physical Therapy Initial Evaluation PT-OP-A Visit Information Start: 02/24/21 15:23 Freq: Status: Active Protocol: Document 02/25/21 07:30 AMB (Rec: 02/25/21 08:40 AMB [email or web address]) Out-Patient Physical Therapy Visit Information Visit Information Visit Type Initial Evaluation Visit Start Time 07:30 Visit Stop Time 08:15 Total Visit Minutes 45 Visit Number 1 PT-OP-B Current Condition Start: 02/24/21 15:23 Freq: Status: Active Protocol: Document 02/25/21 07:30 AMB (Rec: 02/25/21 07:58 AMB [id number]) Current Condition History of Current Condition Onset Date worse 1.5 months ago Current Complaints prolapse History of Current Condition Was diagnosed with cystocele years ago but didn't really bother her until a few months ago. 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 She quit working out with [employer] and is wanting to return to it, but has concerns about the prolapse. Would like to return to weightlifting. 2 live births, 1 vaginal, 1 . Extended pushing with the first. Multiple surgeries as below. Denies chronic constipation or chronic cough. Prior Functional Status Baseline Function- ADL's Independent Baseline Function- Mobility Independent Personal Factors Other Personal Factors That May Effect L4/L5- disc herniation, Therapy/Recovery history of small bowel resection due to hernia. Oophorectomy. PT-OP-C Subjective Start: 02/24/21 15:23 Freq: Status: Active Protocol: Document 02/25/21 07:30 AMB (Rec: 02/25/21 09:00 AMB [email or web address]) Patient Questionnaires Pelvic Pain and Urgency/Frequency Patient Symptom Scale Pelvic Pain Score 8 PT-OP-I Pelvic Floor Start: 02/24/21 15:23 Freq: Status: Active Protocol: Document 02/25/21 07:30 AMB (Rec: 02/25/21 09:00 AMB [email or web address]) Pelvic Floor Assessment Urine Pelvic Floor Surgery No Urinary Symptoms Prolapse,Falling Out Feeling/ Heavy Leakage Size Small Leakage Cause Cough,Sneeze Bowel Page Stool Chart Type 1-7 4 Pelvic Clock Pelvic Clock Other no tenderness or tightness palpated Prolapse Prolapse Comments not tested as pt had pessary in Contraction Ability Voluntary Contraction Weak Voluntary Relaxation Weak Manual Muscle Testing Left 1 Manual Muscle Testing Right 1 Manual Muscle Testing Anterior 1 Manual Muscle Testing Posterior 2 Muscle Endurance (Seconds) 4 Number of Quick Contractions In 10 4 Seconds PT-OP-T Assessment and Plan Start: 02/24/21 15:23 Freq: Status: Active Protocol: Document 02/25/21 07:30 AMB (Rec: 02/25/21 13:47 AMB [email or web address]) Physical Therapy Assessment Rehab Potential Rehabilitation Potential Good Evaluation Complexity Number of Personal Factors/Comorbidities 3 or More Number of Body Systems Impaired 3 Clinical Presentation at Evaluation Evolving Impairments Impairments Functional Activities,Pain, Strength Goals Two Impairment HEP Short Term Goal (STG) Becki will be independent with a pelvic floor strengthening program. STG Duration 4 weeks Subsurface Augmentee Operator Goal (LTG) Becki will be independent with a HEP including weightlifting and core strengthening while nora her pelvic floor. LTG Duration 8 weeks One Impairment prolapse Short Term Goal (STG) Becki will lift 10# from the floor to waist height without a feeling of heaviness. STG Duration 4 weeks Jail Goal (LTG) Becki will stand to [employer] food & cooking without a feeling of pelvic heaviness. 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 She had poor pelvic floor strength and poor endurance without a good ability to engage levator ani. She will benefit from pelvic floor physical therapy to improve her strength and allow her to return to her active lifestyle without worsening prolapse. Physical Therapy Plan Frequency and Duration Frequency of Treatment 1x/Week Duration of Treatment 8 weeks Plan of Care Start Date 02/25/21 Plan of Care End Date 04/22/21 Therapeutic Interventions Therapeutic Interventions Home Exercise Program,Manual Therapy,Neuromuscular Re- education,Self-Care/Home Management,Therapeutic Activities,Therapeutic Exercises Modalities Biofeedback,Electric Stimulation Next Visit Focus/Plan Next Note Type Treatment Note Next Visit Plan sEMG as needed, progress into standing, discuss return to weightlifting/core exercises with awareness of breath and pelvic floor
--- NOTE | 2021-02-25 15:14 | PT.OPPOC ---
Physical, Occupational & Speech Therapy At [facility] Current Diagnoses Other specified disorders of muscle (02/25/21) Incomplete uterovaginal prolapse (02/25/21) Visit Care Team Role Provider Type Blade Rodríguez MD Family Provider Physician Primary Care Provider Specialty: Internal Medicine Address: [address] [place] [address], [address] Email: [email or web address] Merna Justin MD Attending Provider Physician Referring Provider Specialty: CLAIMS CORRESPONDENCE CLERK Address: [address] [place] [address], [address] Email: [email or web address] Plan Of Care PT-OP-T Assessment and Plan Start: 02/24/21 15:23 Freq: Status: Active Protocol: Document 02/25/21 07:30 AMB (Rec: 02/25/21 13:47 AMB [email or web address]) Physical Therapy Assessment Rehab Potential Rehabilitation Potential Good Evaluation Complexity Number of Personal Factors/Comorbidities 3 or More Number of Body Systems Impaired 3 Clinical Presentation at Evaluation Evolving Impairments Impairments Functional Activities,Pain, Strength Goals Two Impairment HEP Short Term Goal (STG) Becki will be independent with a pelvic floor strengthening program. STG Duration 4 weeks Fpc Goal (LTG) Becki will be independent with a HEP including weightlifting and core strengthening while nora her pelvic floor. LTG Duration 8 weeks One Impairment prolapse Short Term Goal (STG) Becki will lift 10# from the floor to waist height without a feeling of heaviness. 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 She had poor pelvic floor strength and poor endurance without a good ability to engage levator ani. She will benefit from pelvic floor physical therapy to improve her strength and allow her to return to her active lifestyle without worsening prolapse. Physical Therapy Plan Frequency and Duration Frequency of Treatment 1x/Week Duration of Treatment 8 weeks Plan of Care Start Date 02/25/21 Plan of Care End Date 04/22/21 Therapeutic Interventions Therapeutic Interventions Home Exercise Program,Manual Therapy,Neuromuscular Re- education,Self-Care/Home Management,Therapeutic Activities,Therapeutic Exercises Modalities Biofeedback,Electric Stimulation Next Visit Focus/Plan Next Note Type Treatment Note Next Visit Plan sEMG as needed, progress into standing, discuss return to weightlifting/core exercises with awareness of breath and pelvic floor Plan of Care Dates Plan of Care Start Date 02/25/21 Plan of Care End Date 04/22/21 Electronically Signed by: Sadia Meadosw, PT 02/25/21 [id number] Please Sign and Return: I have reviewed this Plan of Care and certify that the skilled therapy services above are required to meet the patient?s needs. Physician Signature Date Printed Name and Credentials Clinical Instructor Signature Printed Name and Credentials
--- NOTE | 2021-03-04 15:51 | PT.OTN ---
Current Diagnoses Other specified disorders of muscle (03/04/21) Incomplete uterovaginal prolapse (03/04/21) Physical Therapy Treatment Note PT-OP-A Visit Information Start: 02/24/21 15:23 Freq: Status: Active Protocol: Document 03/04/21 07:30 AMB (Rec: 03/04/21 08:18 AMB [id number]) Out-Patient Physical Therapy Visit Information Visit Information Visit Type Treatment Note Visit Start Time 07:30 Visit Stop Time 08:15 Total Visit Minutes 45 Visit Number 2 PT-OP-B Current Condition Start: 02/24/21 15:23 Freq: Status: Active Protocol: Document 02/25/21 07:30 AMB (Rec: 02/25/21 07:58 AMB [id number]) Current Condition History of Current Condition Onset Date worse 1.5 months ago Current Complaints prolapse History of Current Condition Was diagnosed with cystocele years ago but didn't really bother her until a few months ago. 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 She quit working out with [employer] and is wanting to return to it, but has concerns about the prolapse. Would like to return to weightlifting. 2 live births, 1 vaginal, 1 . Extended pushing with the first. Multiple surgeries as below. Denies chronic constipation or chronic cough. Prior Functional Status Baseline Function- ADL's Independent Baseline Function- Mobility Independent Personal Factors Other Personal Factors That May Effect L4/L5- disc herniation, Therapy/Recovery history of small bowel resection due to hernia. Oophorectomy. PT-OP-C Subjective Start: 02/24/21 15:23 Freq: Status: Active Protocol: Document 03/04/21 07:30 AMB (Rec: 03/04/21 08:18 AMB [id number]) OP-PT Subjective Patient Comments Patient Comments Pt has been working on engaging levator more and it's going well, but fatigues after about 5 seconds. PT-OP-I Pelvic Floor Start: 02/24/21 15:23 Freq: Status: Active Protocol: Document 02/25/21 07:30 AMB (Rec: 02/25/21 09:00 AMB [id number]) Pelvic Floor Assessment Urine Pelvic Floor Surgery No Urinary Symptoms Prolapse,Falling Out Feeling/ Heavy Leakage Size Small Leakage Cause Cough,Sneeze Bowel [place] Stool Chart Type 1-7 4 Pelvic Clock Pelvic Clock Other no tenderness or tightness palpated Prolapse Prolapse Comments not tested as pt had pessary in Contraction Ability Voluntary Contraction Weak Voluntary Relaxation Weak Manual Muscle Testing Left 1 Manual Muscle Testing Right 1 Manual Muscle Testing Anterior 1 Manual Muscle Testing Posterior 2 Muscle Endurance (Seconds) 4 Number of Quick Contractions In 10 4 Seconds PT-OP-Q Treatments Start: 02/24/21 15:23 Freq: Status: Active Protocol: Document 03/04/21 07:30 AMB (Rec: 03/04/21 08:18 AMB [id number]) Therapeutic Exercises Sitting Exercises roll in roll out Resistance #2T band Reps/Minutes 2x10 long holds Reps/Minutes 2x10 Comments cues for breath to relax TA Standing Exercises sit to stand Reps/Minutes 10 PT-OP-T Assessment and Plan Start: 02/24/21 15:23 Freq: Status: Active Protocol: Document 03/04/21 07:30 AMB (Rec: 03/04/21 08:18 AMB [id number]) Physical Therapy Assessment Goals Two Impairment HEP Short Term Goal (STG) Becki will be independent with a pelvic floor strengthening program. STG Duration 4 weeks Store Team Leader Goal (LTG) Becki will be independent with a HEP including weightlifting and core strengthening while nora her pelvic floor. LTG Duration 8 weeks One Impairment prolapse Short Term Goal (STG) Becki will lift 10# from the floor to waist height without a feeling of heaviness. 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 LTG Duration 8 weeks Assessment Summary Assessment Becki has good awareness of her pelvic floor today, will want to discuss return to weightlifting at next visit. Physical Therapy Plan Next Visit Focus/Plan Next Note Type Treatment Note Next Visit Plan progress into standing, discuss return to weightlifting/core exercises with awareness of breath and pelvic floor
--- NOTE | 2021-03-11 15:45 | PT.OTN ---
Current Diagnoses Other specified disorders of muscle (03/11/21) Incomplete uterovaginal prolapse (03/11/21) Physical Therapy Treatment Note PT-OP-A Visit Information Start: 02/24/21 15:23 Freq: Status: Active Protocol: Document 03/11/21 07:31 AMB (Rec: 03/11/21 08:19 AMB [id number]) Out-Patient Physical Therapy Visit Information Visit Information Visit Type Treatment Note Visit Start Time 07:30 Visit Stop Time 08:15 Total Visit Minutes 45 Visit Number 3 PT-OP-B Current Condition Start: 02/24/21 15:23 Freq: Status: Active Protocol: Document 02/25/21 07:30 AMB (Rec: 02/25/21 07:58 AMB [id number]) Current Condition History of Current Condition Onset Date worse 1.5 months ago Current Complaints prolapse History of Current Condition Was diagnosed with cystocele years ago but didn't really bother her until a few months ago. 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 She quit working out with [employer] and is wanting to return to it, but has concerns about the prolapse. Would like to return to weightlifting. 2 live births, 1 vaginal, 1 . Extended pushing with the first. Multiple surgeries as below. Denies chronic constipation or chronic cough. Prior Functional Status Baseline Function- ADL's Independent Baseline Function- Mobility Independent Personal Factors Other Personal Factors That May Effect L4/L5- disc herniation, Therapy/Recovery history of small bowel resection due to hernia. Oophorectomy. 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 PT-OP-I Pelvic Floor Start: 02/24/21 15:23 Freq: Status: Active Protocol: Document 02/25/21 07:30 AMB (Rec: 02/25/21 09:00 AMB [email or web address]) Pelvic Floor Assessment Urine Pelvic Floor Surgery No Urinary Symptoms Prolapse,Falling Out Feeling/ Heavy Leakage Size Small Leakage Cause Cough,Sneeze Bowel [place] Stool Chart Type 1-7 4 Pelvic Clock Pelvic Clock Other no tenderness or tightness palpated Prolapse Prolapse Comments not tested as pt had pessary in Contraction Ability Voluntary Contraction Weak Voluntary Relaxation Weak Manual Muscle Testing Left 1 Manual Muscle Testing Right 1 Manual Muscle Testing Anterior 1 Manual Muscle Testing Posterior 2 Muscle Endurance (Seconds) 4 Number of Quick Contractions In 10 4 Seconds PT-OP-Q Treatments Start: 02/24/21 15:23 Freq: Status: Active Protocol: Document 03/11/21 07:30 AMB (Rec: 03/11/21 13:46 AMB [email or web address]) Therapeutic Exercises Sitting Exercises long holds Reps/Minutes 2x10 Comments cues for breath to relax TA Standing Exercises lunges Standing Exercise Name fwd Reps/Minutes 10 squats Standing Exercise Name 10# Reps/Minutes 10 sit to stand Reps/Minutes 10 PT-OP-T Assessment and Plan Start: 02/24/21 15:23 Freq: Status: Active Protocol: Document 03/11/21 07:31 AMB (Rec: 03/11/21 08:19 AMB [id number]) Physical Therapy Assessment Goals Two Impairment HEP Short Term Goal (STG) Becki will be independent with a pelvic floor strengthening program. STG Duration 4 weeks Fdc Goal (LTG) Becki will be independent with a HEP including weightlifting and core strengthening while nora her pelvic floor. LTG Duration 8 weeks One Impairment prolapse Short Term Goal (STG) Becki will lift 10# from the floor to waist height without a feeling of heaviness. 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 LTG Duration MET Assessment Summary Assessment Becki is feeling ready to be done with PT but was hesitant to d/c today, so we will put her on hold for one month so that she has time to try the new exercises see how her feelings of prolapse continue. Agreed that if we do not hear from her by April 10 that she is ok with d/c. Physical Therapy Plan Next Visit Focus/Plan Next Note Type Discharge Summary
--- NOTE | 2021-04-21 09:20 | PT.OPDS ---
Current Diagnoses Other specified disorders of muscle (03/11/21) Incomplete uterovaginal prolapse (03/11/21) Visit Care Team Role Provider Type Blade Rodríguez MD Family Provider Physician Primary Care Provider Specialty: Internal Medicine Address: [address] [place] [address], [id number] Email: [email or web address] Merna Justin MD Attending Provider Physician Referring Provider Specialty: MARKETING CONTENT MANAGER Address: [address] [place] [address], [id number] Email: [email or web address] Visit Number Visit Number 3 Discharge Summary PT-OP-B Current Condition Start: 02/24/21 15:23 Freq: Status: Active Protocol: Document 02/25/21 07:30 AMB (Rec: 02/25/21 07:58 AMB [id number]) Current Condition History of Current Condition Onset Date worse 1.5 months ago Current Complaints prolapse History of Current Condition Was diagnosed with cystocele years ago but didn't really bother her until a few months ago. 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 She quit working out with [email or web address] and is wanting to return to it, but has concerns about the prolapse. Would like to return to weightlifting. 2 live births, 1 vaginal, 1 . Extended pushing with the first. Multiple surgeries as below. Denies chronic constipation or chronic cough. Prior Functional Status Baseline Function- ADL's Independent Baseline Function- Mobility Independent Personal Factors Other Personal Factors That May Effect L4/L5- disc herniation, Therapy/Recovery history of small bowel resection due to hernia. Oophorectomy. 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 PT-OP-I Pelvic Floor Start: 02/24/21 15:23 Freq: Status: Active Protocol: Document 02/25/21 07:30 AMB (Rec: 02/25/21 09:00 AMB [email or web address]) Pelvic Floor Assessment Urine Pelvic Floor Surgery No Urinary Symptoms Prolapse,Falling Out Feeling/ Heavy Leakage Size Small Leakage Cause Cough,Sneeze Bowel [place] Stool Chart Type 1-7 4 Pelvic Clock Pelvic Clock Other no tenderness or tightness palpated Prolapse Prolapse Comments not tested as pt had pessary in Contraction Ability Voluntary Contraction Weak Voluntary Relaxation Weak Manual Muscle Testing Left 1 Manual Muscle Testing Right 1 Manual Muscle Testing Anterior 1 Manual Muscle Testing Posterior 2 Muscle Endurance (Seconds) 4 Number of Quick Contractions In 10 4 Seconds PT-OP-T Assessment and Plan Start: 02/24/21 15:23 Freq: Status: Active Protocol: Document 04/21/21 09:19 AMB (Rec: 04/21/21 09:20 AMB [id number]) Physical Therapy Assessment Goals Two Impairment HEP Short Term Goal (STG) Becki will be independent with a pelvic floor strengthening program. STG Duration 4 weeks Insurance Examining Clerk Goal (LTG) Becki will be independent with a HEP including weightlifting and core strengthening while nora her pelvic floor. LTG Duration 8 weeks One Impairment prolapse Short Term Goal (STG) Becki will lift 10# from the floor to waist height without a feeling of heaviness. 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 LTG Duration MET Assessment Summary Assessment At last visit over on month ago: Becki is feeling ready to be done with PT but was hesitant to d/c today, so we will put her on hold for one month so that she has time to try the new exercises see how her feelings of prolapse continue. Agreed that if we do not hear from her by April 10 that she is ok with d/c. Physical Therapy Plan Discharge Physical Therapy Discharge Reasons Goals Met
== END 2021-06-02 08:50 ==
LOC: PHYS 07:30
PROVIDERS: Family Provider Internal Medicine; PCP Internal Medicine; Referring Provider Specialist; Visit Provider Specialist
DX: N81.2 Incomplete uterovaginal prolapse (principal); M62.89 Other specified disorders of muscle
CPT/HCPCS: 97110; 97162

== ENCOUNTER 2021-06-18 20:15 | Emergency (ER) | payer OTHER, SELFPAY ==
[2021-06-18 20:50] VITALS: BP 170/92; PULSE 69; RESP 16; TEMP 36.9; O2SAT 97; BMI 23.9
--- NOTE | 2021-06-18 21:12 | DI.CT.S_ITS ---
PROCEDURE: CT ABDOMEN PELVIS W CON INDICATIONS: RLQ pain TECHNIQUE: After the administration of oral and IV contrast, axial sections were acquired from the lung bases to the pubic symphysis. Coronal and sagittal reformats were performed. For radiation dose reduction, the following was used: automated exposure control, adjustment of mA and/or kV according to patient size. COMPARISON: [facility], CT, ABDOMEN/PELVIS WITH CONTRAST, 09/14/2015, 9:09. FINDINGS: Image quality: Excellent. Lung bases: Left basilar scars and atelectasis. Heart: No significant findings. ABDOMEN: Liver: Normal size. Multiple hepatic hypodensities are most likely cysts. Gallbladder: Unremarkable. Biliary ducts: Unremarkable. Pancreas: Unremarkable. Spleen: Unremarkable. Adrenal Glands: Unremarkable. Kidneys and Ureters: Unremarkable. Stomach and Bowel: Stomach is distended and filled with fluid with an air-fluid level. Fluid filled small bowel loops are normal in caliber. Mildly increased small bowel mucosal enhancement. The findings suggest gastroenteritis. Appendix is normal. Diverticulosis without diverticulitis. Peritoneum: No abnormal intraperitoneal fluid. No free air. Ventral Wall: No hernia. Abdominal Nodes: No retroperitoneal or mesenteric adenopathy by size criteria. Vessels: Aorta and inferior vena cava are normal in size. PELVIS: Pelvic Organs: Unremarkable. Bladder: Unremarkable. Pelvic Nodes: No enlarged lymph nodes. Miscellaneous: No inguinal hernias are seen. Bones: Severe degenerative disc disease at L4-L5. There is a bone island in right sacrum. IMPRESSION: 1. Normal appendix. 2. Distended stomach with an air-fluid level. Fluid filled small intestine demonstrates normal caliber and mildly increased mucosal enhancement. The CT findings are suggestive of gastroenteritis. Recommend clinical correlation. 3. Diverticulosis without diverticulitis. 4. Dictated by: Mary Lawrence M.D. on 06/18/2021 at 22:40 Approved by: Mary Lawrence M.D. on 06/18/2021 at 22:46
[2021-06-18 21:28] LABS: Add Manual Diff / Slide Review NO; Basophils Absolute Auto 100 /uL (0-100); Basophils Percent Auto 1.1 % (0-2); Eosinophils Absolute Auto 200 /uL (0-450); Eosinophils Percent Auto 3.7 % (2-4); Hematocrit 41.6 % (36-46); Hemoglobin 13.8 g/dL (12.0-16.0); Lymphocytes Absolute Auto 2200 /uL (1100-4500); Lymphocytes Percent Auto 39.5 % (25-40); Mean Corpuscular HGB Conc 33.3 % (30-36); Mean Corpuscular Hemoglobin 29.6 PG (26-34); Mean Corpuscular Volume 89.1 fL (80-100); Monocytes Absolute Auto 400 /uL (0-900); Monocytes Percent Auto 7.9 % (3-14); Neutrophils Absolute Auto 2600 /uL (1500-7000); Neutrophils Percent Auto 47.8 % (50-75); Platelet Count 244 X10^3/uL (150-400); Red Blood Cell Count 4.67 X10^6/uL (4.0-5.2); Red Cell Distribution Width 12.9 % (11.6-14.8); White Blood Cell Count 5.5 X10^3/uL (4.5-11.0)
[2021-06-18 21:39] LABS: Alanine Aminotransferase 30 IU/L (<35); Albumin 4.5 g/dL (3.5-5.0); Albumin Globulin Ratio 1.3 (1.0-2.8); Alkaline Phosphatase 65 U/L (38-126); Aspartate Aminotransferase 55 IU/L (14-36); BUN Creatinine Ratio 32.1 (6-22); Bilirubin Total 0.8 mg/dL (0.2-1.3); Blood Urea Nitrogen 18 mg/dL (7-17); Calcium 9.1 mg/dL (8.4-10.2); Carbon Dioxide 29 mmol/L (22-32); Chloride 104 mmol/L (98-107); Estimated Glomerular Filt Rate > 60.0 mL/min (>60); Globulin 3.4 g/dL (1.7-4.1); Glucose 98 mg/dL (80-110); Sodium 138 mmol/L (137-145); Total Protein 7.9 g/dL (6.3-8.2)
[2021-06-18 21:40] LABS: Lipase 223 U/L (23-300); Magnesium 2.3 mg/dL (1.6-2.3)
[2021-06-18 21:41] LABS: HEMOLYSIS 221 (0-50); Potassium 5.5 mmol/L (3.4-5.1)
[2021-06-18 22:29] LABS: COVID19 -Nasal RAPID Negative (Negative)
[2021-06-18] MEDS: SODIUM CHLORIDE 0.9% 1,000 ML 1000 ML IV (22:36)
--- NOTE | 2021-06-18 23:04 | ED_ITS ---
HPI - Abdominal Pain General Chief Complaint: Abdominal Pain Stated Complaint: RIGHT SIDED GROIN PAIN Time Seen by Provider: 06/18/21 21:10 Source: patient Mode of arrival: Ambulatory History of Present Illness HPI narrative: 65-year-old woman with a history of hypertension and reflux presents with 4 days of increasing abdominal pain now beginning to localize into the right groin and causing significant pain with standing up straight and walking. She is not localizing the pain to her right lower quadrant truly is more the right inguinal area. She has a history of an incarcerated inguinal hernia that led to bowel resection previously. She reports no fevers for cough. She has not been vomiting has not had diarrhea. She does feel that her abdomen is somewhat bloated than she has distinctly uncomfortable. No cough, palpitations or acute neurologic findings. Related Data Home Medications Medication Instructions Recorded Confirmed CA PANTOTHENATE/FOLIC ACID/VIT 1 tab PO AMINS #0 09/05/11 02/04/21 (MULTIVITAMIN) Calcium Carbonate/Vitamin D 1 cap PO AMINS #0 09/05/11 02/04/21 (#CALCIUM) IBUPROFEN (#MOTRIN / ADVIL) 200 mg PO PRN #0 09/05/11 02/04/21 Inulin (Metamucil) 1 pow PO QDAY #0 12/20/11 02/04/21 biotin 5 mg tablet mg PO tab 06/19/18 02/04/21 magnesium oxide 400 mg PO BID cap 06/19/18 02/04/21 Previous Rx's Medication Instructions Recorded epinephrine 0.3 mg/0.3 mL 0.3 mg (0.3 mL) IM Q15M PRN #1 each 06/02/19 injection, auto-injector (EpiPen 2-Cholo) Nexium 20 mg capsule,delayed 20 mg PO BID #180 cap NS 07/08/20 release (esomeprazole magnesium) metoprolol succinate 50 mg 50 mg PO DAILY #90 tab 01/06/21 tablet,extended release 24 hr estradiol 1 g VAGINAL 2XW #42.5 g 01/19/21 Allergies Allergy/AdvReac Type Severity Reaction Status Date / Time acetaminophen [From NyQuil] Allergy Severe throat Verified 07/15/20 14:51 swelling dextromethorphan Allergy Severe throat Verified 07/15/20 14:51 [From NyQuil] swelling doxylamine [From NyQuil] Allergy Severe throat Verified 07/15/20 14:51 swelling pseudoephedrine [From NyQuil] Allergy Severe throat Verified 07/15/20 14:51 swelling adhesive [ADHESIVE] Allergy Mild BLISTERS Verified 07/15/20 14:51 AND SCARRING adhesive tape [ADHESIVE TAPE] Allergy Mild Verified 07/15/20 14:51 codeine [CODEINE] Allergy Mild projectile Verified 07/15/20 14:51 vomiting diphenhydramine Allergy Mild makes her Verified 07/15/20 14:51 [DIPHENHYDRAMINE] feel like she's going crazy levofloxacin [LEVOFLOXACIN] Allergy Mild vein Verified 07/15/20 14:51 itching, burning,redness Penicillins [PENICILLINS] Allergy Mild severe Verified 07/15/20 14:51 hives prochlorperazine Allergy Mild projectile Verified 07/15/20 14:51 [PROCHLORPERAZINE] vomiting, feels like going crazy Sulfa (Sulfonamide Allergy Mild itching Verified 07/15/20 14:51 Antibiotics) after 5 [SULFA (SULFONAMIDE days on it ANTIBIOTICS)] morphine [MORPHINE] Allergy Unknown Verified 07/15/20 14:51 non stick gauze pads Allergy Unknown Uncoded 07/15/20 14:51 novacaine Allergy Unknown Uncoded 07/15/20 14:51 suture Allergy Unknown Uncoded 07/15/20 14:51 Review of Systems Review of Systems Narrative: Remainder of complete review of systems is otherwise unremarkable except for that included in the HPI. 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) Transaminitis Unspecified essential hypertension Surgical History Anesthesia History of back surgery History of bilateral salpingo-oophorectomy (BSO) (12/20/11) History of breast biopsy History of section History of colonoscopy (03/30/16) History of esophagogastroduodenoscopy (EGD) (03/30/16) History of vein stripping Status post Nahun fundoplication (~09/2020) Status post small bowel resection (09/04/11) Family History Father Cancer Mother Cancer Diabetes mellitus Hypertension Social History marital status: lives independently: Yes caregiver/support person: No Smoking Status: Former smoker alcohol intake: current Smoking Status: Former smoker alcohol intake frequency: a few times a week Alcohol type: wine Substance Use Type: does not use Exam Initial Vital Signs Initial Vital Signs: Vital Signs Temperature 98.4 F 06/18/21 20:50 Pulse Rate 69 06/18/21 20:50 Respiratory Rate 16 06/18/21 20:50 Blood Pressure 170/92 H 06/18/21 20:50 Pulse Oximetry 97 06/18/21 20:50 General: Healthy appearing, in mild distress. Able to give a complete and coherent history. Well-nourished well-developed HEENT: Moist mucous membranes, normal sclera with reactive pupils, Neck: No JVD, supple Respiratory: Lungs are clear to auscultation, no wheezing no rales no rhonchi. Full and symmetrical air movement Cardiac: Regular rate and rhythm no murmurs no bruits Abdomen: Soft, mild distention without rebound or guarding. Good bowel tones, no flank pain. No obvious inguinal hernias appreciated Skin: Warm and dry, no rashes Neurologic: Grossly neurologically intact with no obvious asymmetries or abnormalities Extremities: No trauma, well perfused Psych: Cooperative, appropriate insight and affect Course Orders Ordered: ED Orders 06/18/21 20:45 Complete Blood Count AUTO DIFF Stat Comprehensive Metabolic Panel Stat Lactate (Lactic Acid) Stat Lipase Stat Magnesium Stat 06/18/21 21:11 COVID19 - ADMIT ([employer] swab/PCR) Stat 06/18/21 21:12 CT abdomen pelvis w con Stat 06/18/21 22:10 COVID19 -Nasal swab/Pre-Proc Stat Hydromorphone HCl (Hydromorphone 0.5 Mg Inj) 0.5 mg IV Q15MIN PRN PRN Reason: Pain, Discontinued Medications Sodium Chloride (Normal Saline 0.9%) 1,000 mls @ 1,000 mls/hr IV BOLUS ONE Stop: 06/18/21 22:10 Last Admin: 06/18/21 22:36 Dose: 1,000 mls/hr Documented by: STEPHANIE Ondansetron HCl (Ondansetron 4 Mg/2 Ml Inj) 4 mg IV NOW ONE Stop: 06/18/21 21:12 Last Admin: 06/18/21 22:36 Dose: Not Given Documented by: STEPHANIE Vital Signs Vital signs: Vital Signs - 8 hr 06/18/21 20:50 Temperature 98.4 F Pulse Rate 69 Respiratory Rate 16 Blood Pressure 170/92 H Pulse Oximetry 97 MDM - Abdominal Pain Lab Data Result diagrams: 06/18/21 20:45 06/18/21 20:45 Labs: Lab Results 06/18/21 06/18/21 06/18/21 Range/Units 20:45 20:45 20:45 WBC 5.5 (4.5-11.0) X10^3/uL RBC 4.67 (4.0-5.2) X10^6/uL Hgb 13.8 (12.0-16.0) g/dL Hct 41.6 (36-46) % MCV 89.1 (80-100) fL MCH 29.6 (26-34) PG MCHC 33.3 (30-36) % RDW 12.9 (11.6-14.8) % Plt Count 244 (150-400) X10^3/uL Neut % (Auto) 47.8 L (50-75) % Lymph % (Auto) 39.5 (25-40) % [place] % (Auto) 7.9 (3-14) % Eos % (Auto) 3.7 (2-4) % Baso % (Auto) 1.1 (0-2) % Neut # (Auto) 2600 (1950-5562) /uL Lymph # (Auto) 2200 (3079-9886) /uL [place] # (Auto) 400 (0-900) /uL Eos # (Auto) 200 (0-450) /uL Baso # (Auto) 100 (0-100) /uL Sodium 138 (137-145) mmol/L Potassium 5.5 H (3.4-5.1) mmol/L Chloride 104 (98-107) mmol/L Carbon Dioxide 29 (22-32) mmol/L BUN 18 H (7-17) mg/dL Creatinine 0.56 (0.52-1.04) mg/dL Estimated GFR > 60.0 (>60) mL/min BUN/Creatinine Ratio 32.1 H (6-22) Glucose 98 (80-110) mg/dL Lactate 1.0 (0.7-2.1) mmol/L Calcium 9.1 (8.4-10.2) mg/dL Magnesium (1.6-2.3) mg/dL Total Bilirubin 0.8 (0.2-1.3) mg/dL AST 55 H (14-36) IU/L ALT 30 (<35) IU/L Alkaline Phosphatase 65 (38-126) U/L Total Protein 7.9 (6.3-8.2) g/dL Albumin 4.5 (3.5-5.0) g/dL Globulin 3.4 (1.7-4.1) g/dL Albumin/Globulin Ratio 1.3 (1.0-2.8) Lipase (23-300) U/L SARS-CoV-2 (PCR) (Negative) 06/18/21 06/18/21 Range/Units 20:45 22:10 WBC (4.5-11.0) X10^3/uL RBC (4.0-5.2) X10^6/uL Hgb (12.0-16.0) g/dL Hct (36-46) % MCV (80-100) fL MCH (26-34) PG MCHC (30-36) % RDW (11.6-14.8) % Plt Count (150-400) X10^3/uL Neut % (Auto) (50-75) % Lymph % (Auto) (25-40) % [place] % (Auto) (3-14) % Eos % (Auto) (2-4) % Baso % (Auto) (0-2) % Neut # (Auto) (0201-4540) /uL Lymph # (Auto) (1986-0833) /uL [place] # (Auto) (0-900) /uL Eos # (Auto) (0-450) /uL Baso # (Auto) (0-100) /uL Sodium (137-145) mmol/L Potassium (3.4-5.1) mmol/L Chloride (98-107) mmol/L Carbon Dioxide (22-32) mmol/L BUN (7-17) mg/dL Creatinine (0.52-1.04) mg/dL Estimated GFR (>60) mL/min BUN/Creatinine Ratio (6-22) Glucose (80-110) mg/dL Lactate (0.7-2.1) mmol/L Calcium (8.4-10.2) mg/dL Magnesium 2.3 (1.6-2.3) mg/dL Total Bilirubin (0.2-1.3) mg/dL AST (14-36) IU/L ALT (<35) IU/L Alkaline Phosphatase (38-126) U/L Total Protein (6.3-8.2) g/dL Albumin (3.5-5.0) g/dL Globulin (1.7-4.1) g/dL Albumin/Globulin Ratio (1.0-2.8) Lipase 223 (23-300) U/L SARS-CoV-2 (PCR) Negative (Negative) Imaging Data CT scan - abdomen/pelvis: Radiologist's Impression: FINDINGS:? Image quality:? Excellent.? ? Lung bases:? Left basilar scars and atelectasis.? ? Heart:? No significant findings. ? ? ABDOMEN: Liver:? Normal size.? Multiple hepatic hypodensities are most likely cysts.? ? Gallbladder:? Unremarkable.? ? Biliary ducts:? Unremarkable.? ? Pancreas:? Unremarkable.? ? Spleen:? Unremarkable.? ? Adrenal Glands:? Unremarkable.? ? Kidneys and Ureters:? Unremarkable.? ? ? Stomach and Bowel:? Stomach is distended and filled with fluid with an air-fluid level.? Fluid filled small bowel loops are normal in caliber.? Mildly increased small bowel mucosal enhancement.? The findings suggest gastroenteritis.? Appendix is normal.? Diverticulosis without diverticulitis. Peritoneum:? No abnormal intraperitoneal fluid.? No free air.? ? Ventral Wall: ? No hernia.? Abdominal Nodes:? No retroperitoneal or mesenteric adenopathy by size criteria.? Vessels:? Aorta and inferior vena cava are normal in size.? ? PELVIS: Pelvic Organs:? Unremarkable.? ? Bladder:? Unremarkable.? ? Pelvic Nodes: No enlarged lymph nodes.? Miscellaneous: No inguinal hernias are seen. ? ? ? Bones:? Severe degenerative disc disease at L4-L5. There is a bone island in right sacrum. ? ? IMPRESSION:? ? 1. Normal appendix. 2. Distended stomach with an air-fluid level.? Fluid filled small intestine demonstrates normal caliber and mildly increased mucosal enhancement.? The CT findings are suggestive of gastroenteritis.? Recommend clinical correlation. 3. Diverticulosis without diverticulitis. 4.? ? ? Dictated by: Mary Lawrence M.D. on 06/18/2021 at 22:40? ?? [facility] Narrative Medical decision making narrative: 65-year-old woman with 4 days of increasing abdominal pain. Significantly tender in the right lower quadrant. Lab work is reassuring and CT scan suggests a distended stomach and duodenum consistent with a gastroenteritis with no evidence of acute appendicitis, diverticulitis or other acute abdominal findings that would require further evaluation or surgical consultation. All of these findings are reviewed with her. She has Zofran available to her at home. She declines any additional medications at this time. Encouraged her to given a bit more time, she can use Tylenol or ibuprofen as needed for the discomfort. If symptoms worsen she will need to come back for further evaluation. Discharge Plan Departure Patient Disposition: Home Clinical Impression: Gastroenteritis Instructions: DI for Viral Gastroenteritis -- Adult Activity Restrictions/Additional Instructions: Thank you for coming in today Your lab work and CT scan were actually quite reassuring. Your CT scan suggested some inflammation in your stomach and your duodenum consistent with gastroenteritis. You do not have appendicitis, diverticulitis, incarcerated hernias or hernias of any type, nothing that needs surgical intervention or hospitalization at this time. You can use Zofran as needed for nausea control Your COVID test was negative today however some type of virus is probably causing your overall symptoms. If you are getting worse, you do need to return to the emergency department and we do need to fully re-evaluate. I hope you heal quickly and completely Prescriptions: No Action CA PANTOTHENATE/FOLIC ACID/VIT (MULTIVITAMIN) 1 tab PO AMINS Qty: 0 0RF Calcium Carbonate/Vitamin D (#CALCIUM) 1 cap PO AMINS Qty: 0 0RF IBUPROFEN (#MOTRIN / ADVIL) 200 mg PO PRN Qty: 0 0RF Inulin (Metamucil) 1 pow PO QDAY Qty: 0 0RF esomeprazole magnesium [Nexium] 20 mg capsule,delayed release(DR/EC) 20 mg PO BID Qty: 180 3RF Rx Instructions: Nexium only-cannot use alternative metoprolol succinate 50 mg tablet extended release 24 hr 50 mg PO DAILY Qty: 90 1RF magnesium oxide 400 mg capsule 400 mg PO BID 0RF biotin 5 mg tablet PO 0RF estradiol 0.01 % (0.1 mg/gram) cream 1 g vaginal 2XW Qty: 42.5 0RF Rx Instructions: Apply externally every night for 2 weeks then twice weekly epinephrine [EpiPen 2-Chloo] 0.3 mg/0.3 mL auto-injector 0.3 mg IM Q15M PRN (Reason: anaphylaxis) Qty: 1 0RF Rx Instructions: until response Referrals: Blade Rodríguez MD [Primary Care Provider] -
[2021-06-18] MEDS: KETOROLAC 30 MG/ML VIAL 15 MG IV (23:34)
[2021-06-18 23:42] VITALS: BP 151/78; PULSE 64; RESP 18
== END 2021-06-18 23:45 | disposition home or self-care (01) ==
PROVIDERS: Emergency Provider Emergency Medicine; Family Provider Internal Medicine; PCP Internal Medicine
DX: K52.9 Noninfective gastroenteritis and colitis, unspecified (principal); Z87.891 Personal history of nicotine dependence; Z20.822 Contact with and (suspected) exposure to COVID-19
CPT/HCPCS: 36415; 74177; 80053; 83605; 83690; 83735; 85025; 87635; 96374; 99284; C9803; J1885; Q9967

== ENCOUNTER 2021-10-31 18:43 | Emergency (ER) | payer OTHER, MEDICARE, SELFPAY ==
[2021-10-31 18:57] VITALS: BP 186/92; PULSE 73; RESP 18; TEMP 36.2; O2SAT 97; BMI 24.7
--- NOTE | 2021-10-31 19:00 | DI.RAD.S_ITS ---
PROCEDURE: XR ELBOW RT MIN 3V INDICATIONS: Fall with pain TECHNIQUE: 4 views of the elbow were acquired. COMPARISON: None. FINDINGS: Bones: No fractures or dislocations. No suspicious bony lesions. Soft tissues: Displacement of anterior fat pad is seen suggestive of moderate joint effusion. No suspicious soft tissue calcifications. IMPRESSION: No definite fracture is seen. Moderate joint effusion concerning for occult fracture. Suggest follow-up study in 7-10 days if patient's symptoms persist. Dictated by: Jarrod Benson M.D. on 10/31/2021 at 19:29 Approved by: Jarrod Benson M.D. on 10/31/2021 at 19:33
--- NOTE | 2021-10-31 22:52 | ED_ITS ---
HPI - Fall General Chief Complaint: Fall Stated Complaint: GLF ON RIGHT SIDE INJURED ARM Time Seen by Provider: 10/31/21 22:48 Source: patient Mode of arrival: Ambulatory History of Present Illness HPI Narrative: 65-year-old woman with history of hypertension was working in the [employer] fell backwards on extended right arm fully extended the arm felt a pop and then had severe pain in the elbow. She is now no longer able to move the elbow at of flexion and is having a moderate amount of pain. Related Data Home Medications Medication Instructions Recorded Confirmed CA PANTOTHENATE/FOLIC ACID/VIT 1 tab PO AMINS ##0 09/05/11 10/27/21 (MULTIVITAMIN) Calcium Carbonate/Vitamin D 1 cap PO AMINS ##0 09/05/11 10/27/21 (#CALCIUM) IBUPROFEN (#MOTRIN / ADVIL) 200 mg PO PRN ##0 09/05/11 10/27/21 Inulin (Metamucil) 1 pow PO QDAY ##0 12/20/11 10/27/21 biotin 5 mg tablet mg PO 06/19/18 10/27/21 magnesium oxide 400 mg PO BID 06/19/18 10/27/21 Previous Rx's Medication Instructions Recorded epinephrine 0.3 mg/0.3 mL 0.3 mg (0.3 mL) IM Q15M PRN 06/02/19 injection, auto-injector (EpiPen anaphylaxis 3 doses #1 ea 2-Cholo) estradiol 0.01% (0.1 mg/gram) 1 g vaginal 2XW Vaginal atrophy 01/19/21 vaginal cream #42.5 grams metoprolol succinate 50 mg 50 mg PO DAILY #90 tabs 07/27/21 tablet,extended release 24 hr Allergies Allergy/AdvReac Type Severity Reaction Status Date / Time acetaminophen [From NyQuil] Allergy Severe throat Verified 10/31/21 18:56 swelling dextromethorphan Allergy Severe throat Verified 10/31/21 18:56 [From NyQuil] swelling doxylamine [From NyQuil] Allergy Severe throat Verified 10/31/21 18:56 swelling pseudoephedrine [From NyQuil] Allergy Severe throat Verified 10/31/21 18:56 swelling adhesive [ADHESIVE] Allergy Mild BLISTERS Verified 10/31/21 18:56 AND SCARRING adhesive tape [ADHESIVE TAPE] Allergy Mild Verified 10/31/21 18:56 codeine [CODEINE] Allergy Mild projectile Verified 10/31/21 18:56 vomiting diphenhydramine Allergy Mild makes her Verified 10/31/21 18:56 [DIPHENHYDRAMINE] feel like she's going crazy levofloxacin [LEVOFLOXACIN] Allergy Mild vein Verified 10/31/21 18:56 itching, burning,redness Penicillins [PENICILLINS] Allergy Mild severe Verified 10/31/21 18:56 hives prochlorperazine Allergy Mild projectile Verified 10/31/21 18:56 [PROCHLORPERAZINE] vomiting, feels like going crazy Sulfa (Sulfonamide Allergy Mild itching Verified 10/31/21 18:56 Antibiotics) after 5 [SULFA (SULFONAMIDE days on it ANTIBIOTICS)] morphine [MORPHINE] Allergy Unknown Verified 10/31/21 18:56 non stick gauze pads Allergy Unknown Uncoded 10/31/21 18:56 novacaine Allergy Unknown Uncoded 10/31/21 18:56 suture Allergy Unknown Uncoded 10/31/21 18:56 Review of Systems Review of Systems Narrative: Remainder of complete review of systems is otherwise unremarkable except for that included in the HPI. 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) Transaminitis Unspecified essential hypertension Surgical History Anesthesia History of back surgery History of bilateral salpingo-oophorectomy (BSO) (12/20/11) History of breast biopsy History of section History of colonoscopy (03/30/16) History of esophagogastroduodenoscopy (EGD) (03/30/16) History of vein stripping Status post Nahun fundoplication (~09/2020) Status post small bowel resection (09/04/11) Family History Father Cancer Mother Cancer Diabetes mellitus Hypertension Social History marital status: lives independently: Yes caregiver/support person: No Smoking Status: Former smoker alcohol intake: current Smoking Status: Former smoker alcohol intake frequency: a few times a week Alcohol type: wine Substance Use Type: does not use Exam Initial Vital Signs Initial Vital Signs: Vital Signs Temperature 97.2 F L 10/31/21 18:57 Pulse Rate 73 10/31/21 18:57 Respiratory Rate 18 10/31/21 18:57 Blood Pressure 186/92 H 10/31/21 18:57 Pulse Oximetry 97 10/31/21 18:57 Oxygen Delivery Method 10/31/21 18:57 General: Alert appropriate in no acute distress Respiratory: Able to speak in full sentences, no obvious respiratory distress Skin: No obvious rashes, warm and dry Neurologic: Grossly intact no obvious asymmetries or abnormalities Psych: appropriate insight and affect, cooperative Extremity: Right elbow is tender slightly swollen unable to be fully extended. She does have full nonpainful flexion and extension at the wrist skin is neurovascularly intact. Procedures Orthopedic Splinting/Casting Right elbow fracture: Time of procedure: 01:55 Side: right Upper Extremity Injury Location: elbow Upper Extremity Immobilizer: sling/shoulder immobilizer and posterior splint Post splinting neuro exam: intact Post splinting vascular exam: intact Placed by: Nursing Course Orders Ordered: ED Orders 10/31/21 22:52 CT UE RT wo con Stat Discontinued Medications Ibuprofen (Ibuprofen 400 Mg Tablet) 400 mg PO NOW ONE Stop: 10/31/21 22:53 Last Admin: 10/31/21 23:00 Dose: 400 mg Documented By: EB Vital Signs Vital signs: Vital Signs - 8 hr 11/01/21 02:01 Pulse Rate 80 Respiratory Rate 18 Blood Pressure 132/78 Pulse Oximetry 98 Oxygen Delivery Method Room Air MDM - Fall Imaging Data [place] XR and CT: Radiologist's Impression: FINDINGS:? ? Bones:? No fractures or dislocations.? No suspicious bony lesions.? ? Soft tissues:? Displacement of anterior fat pad is seen suggestive of moderate joint effusion.? No suspicious soft tissue calcifications.? ? ? IMPRESSION:? No definite fracture is seen.? Moderate joint effusion concerning for occult fracture.? Suggest follow-up study in 7-10 days if patient's symptoms persist. ? ? Dictated by: Jarrod Benson M.D. on 10/31/2021 at 19:29 ? ? FINDINGS:? Image quality:? Suboptimal because of position.? Patient was unable to streaking of arm for CT. ? Bones:? There is a small fracture involving the coronoid process of ulna.? Possible nondisplaced radial head fracture versus artifact. ? Soft tissues:? Mildly fusion. ? IMPRESSION:? ? 1. A small fracture involving the coronoid process. 2. Possible nondisplaced radial head fracture. 3. If clinically indicated, follow-up MRI would be helpful.? ? ? Dictated by: Mary Lawrence M.D. on 11/01/2021 at 0:49 ? ? MDM Narrative Medical decision making narrative: 65-year-old woman with fall on a straight arm extended elbow and small n ondisplaced coronoid fracture possible radial head fracture. She is placed in a long-arm posterior splint and a sling. Ibuprofen and Tylenol have been adequate for pain control. Will have her follow-up with Ortho for definitive treatment. Discharge Plan Departure Patient Disposition: Home Clinical Impression: Elbow fracture, right Instructions: DI for Elbow Fracture Activity Restrictions/Additional Instructions: Thank you for coming in today It does look like you have a small fracture of the tip of the elbow and possible radial head as well. You have been placed in a long-arm splint with a sling. You do need to follow-up with me with [facility] orthopedic Surgeons for definitive treatment. Please call their office on Tuesday at [phone] can explain your in the emergency department and had an elbow fracture. Using 400 mg of ibuprofen (2 [id number] pills) and 1 Tylenol every 6 hours can be very helpful in controlling pain. If you have new or worsening symptoms, please feel free to return to the emergency department Prescriptions: No Action CA PANTOTHENATE/FOLIC ACID/VIT (MULTIVITAMIN) 1 tab PO AMINS Qty: 0 Calcium Carbonate/Vitamin D (#CALCIUM) 1 cap PO AMINS Qty: 0 IBUPROFEN (#MOTRIN / ADVIL) 200 mg PO PRN Qty: 0 Inulin (Metamucil) 1 pow PO QDAY Qty: 0 metoprolol succinate 50 mg tablet extended release 24 hr 50 mg PO DAILY Qty: 90 3RF magnesium oxide 400 mg capsule 400 mg PO BID biotin 5 mg tablet PO estradiol 0.01 % (0.1 mg/gram) cream 1 g vaginal 2XW Qty: 42.5 0RF Rx Instructions: Apply externally every night for 2 weeks then twice weekly epinephrine [EpiPen 2-Cholo] 0.3 mg/0.3 mL auto-injector 0.3 mg IM Q15M PRN (Reason: anaphylaxis) Qty: 1 0RF Rx Instructions: until response Referrals: Blade Rodríguez MD [Primary Care Provider] - Visit Report Forms: Patient Portal/API
--- NOTE | 2021-10-31 22:52 | DI.CT.S_ITS ---
PROCEDURE: CT UE RT WO CON INDICATIONS: elbow injury, unable to straighten TECHNIQUE: Noncontrast 1-1.5 mm axial sections were acquired through the elbow joint, with coronal and sagittal reformats. COMPARISON: [facility], CR, XR ELBOW RT MIN 3V, 10/31/2021, 18:58. FINDINGS: Image quality: Suboptimal because of position. Patient was unable to streaking of arm for CT. Bones: There is a small fracture involving the coronoid process of ulna. Possible nondisplaced radial head fracture versus artifact. Soft tissues: Mildly fusion. IMPRESSION: 1. A small fracture involving the coronoid process. 2. Possible nondisplaced radial head fracture. 3. If clinically indicated, follow-up MRI would be helpful. Dictated by: Mary Lawrence M.D. on 11/01/2021 at 0:49 Approved by: Mary Lawrence M.D. on 11/01/2021 at 0:57
[2021-10-31] MEDS: IBUPROFEN 400 MG TABLET PO (23:00)
[2021-11-01 02:01] VITALS: BP 132/78; PULSE 80; RESP 18; O2SAT 98
== END 2021-11-01 02:03 | disposition home or self-care (01) ==
PROVIDERS: Emergency Provider Emergency Medicine; Family Provider Internal Medicine; PCP Internal Medicine
DX: S42.401A Unspecified fracture of lower end of right humerus, initial encounter for closed fracture (principal); W19.XXXA Unspecified fall, initial encounter
CPT/HCPCS: 73080; 73200; 99283; 99284

== ENCOUNTER 2021-11-15 19:21 | Emergency (ER) | payer OTHER, MEDICARE, SELFPAY ==
[2021-11-15] VITALS (10 sets, daily range): BP systolic 174–186; BP diastolic 86–102; PULSE 85–110; RESP 18–24; TEMP 37.5; O2SAT 92–96; BMI 24.0
--- NOTE | 2021-11-15 19:49 | DI.RAD.S_ITS ---
P the ROCEDURE: XR CHEST 2V INDICATIONS: worsening covid TECHNIQUE: 2 views of the chest were acquired. COMPARISON: [facility], , CHEST 2 VIEW, 01/17/2009, 9:39. FINDINGS: Surgical changes and devices: None. Lungs and pleura: There are slightly increased left infrahilar retrocardiac opacities. No pleural effusions or pneumothorax. Mediastinum: Mediastinal contours are normal. Heart size is normal. Bones and chest wall: No suspicious bony abnormalities. Bilateral calcified breast implants are redemonstrated. IMPRESSION: 1. Slightly increased left retrocardiac opacities may represent atelectasis or consolidation. Dictated by: Navjot Lau M.D. on 11/15/2021 at 20:43 Approved by: Navjot Lau M.D. on 11/15/2021 at 20:44
[2021-11-15 20:00] LABS: Add Manual Diff / Slide Review NO; Basophils Absolute Auto 100 /uL (0-100); Basophils Percent Auto 0.9 % (0-2); Eosinophils Absolute Auto 200 /uL (0-450); Eosinophils Percent Auto 1.5 % (2-4); Hematocrit 42.6 % (36-46); Hemoglobin 14.5 g/dL (12.0-16.0); Lymphocytes Absolute Auto 1800 /uL (1100-4500); Lymphocytes Percent Auto 18.2 % (25-40); Mean Corpuscular HGB Conc 34.1 % (30-36); Mean Corpuscular Hemoglobin 29.7 PG (26-34); Mean Corpuscular Volume 87.2 fL (80-100); Monocytes Absolute Auto 1000 /uL (0-900); Monocytes Percent Auto 10.1 % (3-14); Neutrophils Absolute Auto 7000 /uL (1500-7000); Neutrophils Percent Auto 69.3 % (50-75); Platelet Count 312 X10^3/uL (150-400); Red Blood Cell Count 4.89 X10^6/uL (4.0-5.2); Red Cell Distribution Width 12.8 % (11.6-14.8); White Blood Cell Count 10.1 X10^3/uL (4.5-11.0)
[2021-11-15 20:13] LABS: Alanine Aminotransferase 48 IU/L (<35); Albumin 4.5 g/dL (3.5-5.0); Albumin Globulin Ratio 1.2 (1.0-2.8); Alkaline Phosphatase 115 U/L (38-126); Aspartate Aminotransferase 39 IU/L (14-36); BUN Creatinine Ratio 11.5 (6-22); Bilirubin Total 0.5 mg/dL (0.2-1.3); Blood Urea Nitrogen 7 mg/dL (7-17); Carbon Dioxide 22 mmol/L (22-32); Chloride 102 mmol/L (98-107); Estimated Glomerular Filt Rate > 60 mL/min (>60); Globulin 3.7 g/dL (1.7-4.1); Glucose 121 mg/dL (80-110); HEMOLYSIS < 15 (0-50); Lipase 108 U/L (23-300); Sodium 138 mmol/L (137-145); Total Protein 8.2 g/dL (6.3-8.2)
[2021-11-15 20:30] LABS: Procalcitonin 0.05 ng/mL (<0.5)
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
[2021-11-15] MEDS: KETOROLAC 30 MG/ML VIAL 15 MG IV (21:23)
[2021-11-15] MEDS: BENZONATATE 100 MG CAPSULE PO (21:23)
[2021-11-15 21:27] LABS: D Dimer 226 ng/mL (<230)
[2021-11-15 21:30] LABS: NT-proBNP (BNP-Adult 18+) 315 pg/mL (<125); Troponin I < 0.012 ng/mL (0.01-0.034)
[2021-11-15] MEDS: IPRATROPIUM 0.5 MG/2.5 ML NEB INH (21:30)
[2021-11-15] MEDS: ALBUTEROL 2.5 MG/3 ML NEB (ADULT) INH (21:32)
== END 2021-11-15 23:20 | disposition home or self-care (01) ==
PROVIDERS: Emergency Provider Emergency Medicine; Family Provider Internal Medicine; PCP Internal Medicine
DX: J15.9 Unspecified bacterial pneumonia (principal); Z86.16 Personal history of COVID-19
CPT/HCPCS: 36415; 71046; 80053; 83605; 83690; 83880; 84145; 84484; 85025; 85379; 87040; 94640; 96374; 99284; J1885; J7613

== ENCOUNTER → 2021-11-17 15:15 | Outpatient (CLI) | payer OTHER, SELFPAY ==
--- NOTE | 2021-11-17 | DI.RAD.S_ITS ---
PROCEDURE: XR ELBOW RT 2V INDICATIONS: Nondisplaced fracture of head of right radius, initial encou TECHNIQUE: 3 views of the elbow were acquired. COMPARISON: [facility], CT, CT UE RT WO CON, 10/31/2021, 23:49. [facility], CR, XR ELBOW RT MIN 3V, 10/31/2021, 18:58. FINDINGS: No plain radiographic correlate for the known nondisplaced radial head fracture. Displacement of the anterior humeral fat pad indicative of a [id number] effusion has improved but not entirely resolved. IMPRESSION: No plain radiographic correlate for nondisplaced radial head fracture seen on comparison CT. Decreased joint effusion. Dictated by: Murtaza Umaña M.D. on 11/18/2021 at 10:02 Approved by: Murtaza Umaña M.D. on 11/18/2021 at 10:05
== END ==
PROVIDERS: Family Provider Internal Medicine; PCP Internal Medicine; Referring Provider Physician Assistant Medical; Visit Provider Physician Assistant Medical
DX: S52.124A Nondisplaced fracture of head of right radius, initial encounter for closed fracture (principal)
CPT/HCPCS: 73080

== ENCOUNTER → 2022-10-27 06:52 | Outpatient (CLI) | payer OTHER, SELFPAY ==
[2022-10-27 08:15] LABS: Alanine Aminotransferase 24 IU/L (<35); Albumin 4.2 g/dL (3.5-5.0); Albumin Globulin Ratio 1.3 (1.0-2.8); Alkaline Phosphatase 77 U/L (38-126); Aspartate Aminotransferase 24 IU/L (14-36); BUN Creatinine Ratio 26.8 (6-22); Bilirubin Total 0.5 mg/dL (0.2-1.3); Blood Urea Nitrogen 19 mg/dL (7-17); Calcium 8.7 mg/dL (8.4-10.2); Carbon Dioxide 28 mmol/L (22-32); Chloride 102 mmol/L (98-107); Cholesterol 238 mg/dL (140-199); Estimated Glomerular Filt Rate > 60 mL/min (>60); Globulin 3.3 g/dL (1.7-4.1); Glucose 88 mg/dL (80-110); HDL Cholesterol 55 mg/dL (40-60); HEMOLYSIS < 15 (0-50); LDL Cholesterol Calculated 159 mg/dL (<100); Potassium 4.6 mmol/L (3.4-5.1); Sodium 136 mmol/L (137-145); Total Protein 7.5 g/dL (6.3-8.2); Triglycerides 118 mg/dL (35-150)
[2022-10-27 08:40] LABS: Free T4, Direct Thyroxine 0.98 ng/dL (0.78-2.19)
[2022-10-27 08:54] LABS: Thyroid Stimulating Hormone 3.21 uIU/mL (0.47-4.68)
== END ==
PROVIDERS: Family Provider Internal Medicine; PCP Internal Medicine; Referring Provider Internal Medicine; Visit Provider Internal Medicine
DX: I10 Essential (primary) hypertension (principal); I20.1 Angina pectoris with documented spasm; K21.9 Gastro-esophageal reflux disease without esophagitis; R74.01 Elevation of levels of liver transaminase levels
CPT/HCPCS: 36415; 80053; 80061; 84439; 84443

== ENCOUNTER 2023-03-21 15:15 | Outpatient (RCR) | payer OTHER, SELFPAY ==
--- NOTE | 2023-03-18 17:09 | PT.OIE ---
Current Diagnoses Posterior tibial tendinitis, right leg (03/18/23) Posterior tibial tendinitis, left leg (03/18/23) Pain in right foot (03/18/23) Pain in left foot (03/18/23) Congenital pes cavus, right foot (03/18/23) Congenital pes cavus, left foot (03/18/23) Past Medical History (Last Updated 11/15/21 @ 21:13 by Valerie Padilla MD) Allergies Cardiac arrhythmia Cervical spine disease Chicken pox Chronic back pain Coronary artery spasm COVID Cystocele with rectocele (07/05/17) Deep vein thrombosis Diverticular disease of colon (12/03/02) Esophageal ring Fibroids GERD (gastroesophageal reflux disease) (06/17/11) Hearing loss Hemorrhoid Irritable bowel syndrome Measles Melanoma Migraines Mumps Plantar warts Psoriasis Rubella Ruptured tympanic membrane 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) Transaminitis Unspecified essential hypertension Past Surgical History (Last Reviewed 11/15/21 @ 21:12 by Valerie Padilla MD) Anesthesia History of back surgery History of bilateral salpingo-oophorectomy (BSO) (12/20/11) History of breast biopsy History of section History of colonoscopy (03/30/16) History of esophagogastroduodenoscopy (EGD) (03/30/16) History of vein stripping Status post Nahun fundoplication (~09/2020) Status post small bowel resection (09/04/11) Visit Care Team Role Provider Type Blade Rodríguez MD Family Provider Physician Primary Care Provider Specialty: Internal Medicine Address: [address] [place] [address], [address], [address] Email: [email or web address] York DPM Attending Provider Non-Staff Referring Provider Specialty: Podiatry Address: [address] [place] [address], [id number] Email: Physical Therapy Initial Evaluation PT-OP-A Visit Information Start: 03/18/23 11:16 Freq: Status: Active Protocol: Document 03/18/23 09:45 DCW (Rec: 03/18/23 11:21 DC [id number]) Out-Patient Physical Therapy Visit Information Visit Information Visit Type Initial Evaluation Visit Start Time 09:45 Visit Stop Time 10:20 Total Visit Minutes 35 Visit Number 1 Number of SHAREPOINT ADMINISTRATOR Visits 0 Evaluation Information Evaluation Date 03/18/23 PT-OP-B Current Condition Start: 03/18/23 11:16 Freq: Status: Active Protocol: Document 03/18/23 09:45 DCW (Rec: 03/18/23 17:09 [facility] [id number]) Current Condition History of Current Condition Onset Date Seven months Current Complaints Bilateral foot/ankle pain History of Current Condition Pt is a 67 year old female presenting with a seven month history of foot pain. Pt reports at her daughter's wedding, she spent the entire day setting up, dancing, and tearing down the bilingual receptionist area in heels, and by the end of the night, could not walk. Pt was hoping she could just let it rest and return to normal function, but after 1-2 weeks, was no better. Admits she then went onto the internet to self-diagnose and treat, but that didn't help. Was trying to perform heel raises and stretching, but decided she didn't want to hurt herself. Finally went in to be seen by a window shade estimator, and was given orthotics, which helped quite a bit, but she continues to experience ongoing pain. Limited walking, notes it kills me to walk through the grocery store. [place], but is again very limited in her ability to perform her normal chores. Additionally, pt's recently fractured his neck, so a lot of extra work falls to pt to perform. PT-OP-C Subjective Start: 03/18/23 11:16 Freq: Status: Active Protocol: Document 03/18/23 09:45 DCW (Rec: 03/18/23 11:21 DC [id number]) OP-PT Subjective Patient Comments Patient Comments I just need to get these feet fixed so I can do what I need to do. Patient Reported Progress Improving Patient Questionnaires Foot & Ankle Ability Measure- ADL and Sports FAAM-ADL Score 65.48% FAAM-ADL Impairment 20 to 39% Impaired (Score 50- 66) Lower Extremity Functional Scale LEFS Score 51.25% LEFS Impairment 40 to 59% Impaired (Score 32- 47) PT-OP-F Manual Assessment Start: 03/18/23 11:16 Freq: Status: Active Protocol: Document 03/18/23 09:45 DCW (Rec: 03/18/23 17:09 DCW [id number]) Manual Assessments Soft Tissue Assessment Soft Tissue Mobility Assessment Tenderness to palpation 3/4: Wincing and withdraw along entirety of bilateral posterior tib, origin to insertion, with worse pain as tendon wraps around malleoli and at the insertion point on her plantar surface bilaterally. PT-OP-K Range of Motion Start: 03/18/23 11:16 Freq: Status: Active Protocol: Document 03/18/23 09:45 DCW (Rec: 03/18/23 11:53 DCW [id number]) Ankle and Foot Goniometric Range of Motion Ankle and Foot Right Active Testing Position Sitting Dorsiflexion with Knee Flexed 20 Dorsiflexion with Knee Extended 15 Plantarflexion 40 Inversion 40 Eversion 25 Left Active Testing Position Sitting Dorsiflexion with Knee Flexed 20 Dorsiflexion with Knee Extended 15 Plantarflexion 40 Inversion 25 Eversion 20 PT-OP-Q Treatments Start: 03/18/23 11:16 Freq: Status: Active Protocol: Document 03/18/23 09:45 DCW (Rec: 03/18/23 11:53 DCW [id number]) Therapeutic Exercises Sitting Exercises Calf STM Sitting Exercise Name Self-STM with roller Side bilateral Standing Exercises Heel Raises Standing Exercise Name Eccentric SL heel raises Side bilateral Comments trial 1 rep each side, significant pain response on L , d/c for now Calf stretch Standing Exercise Name Runner's stretch Side bilateral PT-OP-T Assessment and Plan Start: 03/18/23 11:16 Freq: Status: Active Protocol: Document 03/18/23 09:45 DCW (Rec: 03/18/23 17:09 DCW [id number]) Physical Therapy Assessment Rehab Potential Rehabilitation Potential Good Evaluation Complexity Number of Personal Factors/Comorbidities 1-2 Number of Body Systems Impaired 1-2 Clinical Presentation at Evaluation Unstable Impairments Impairments Functional Activities, Functional Mobility,Gait,Pain, Soft Tissue Mobility,Tone Goals Two Impairment Pt unable to tolerate trip to grocery store without significant foot pain Shelter Goal (LTG) Pt to complete trips to grocery store without increased foot or ankle pain bilaterally for two consecutive visits. LTG Duration 05/18/23 One Impairment Pt does not have an appropriate home exercise program Short Term Goal (STG) Pt to be independent and compliant with an appropriate HEP. STG Duration 04/17/23 Assessment Summary Assessment Pt presents with signs and symptoms consistent with referring diagnosis of bilateral posterior tibialis tendonitis. Pain located in a very point-specific location along length of posterior tib. Attempted some eccentric strengthening, which resulted in immediate increase in pain, so will hold off on strengthening for now. Pt instructed in stretching and calf rolling, which she felt much more comfortable with. Pt will likely benefit from continued skilled therapeutic intervention, focusing on improving soft tissue mobility , decreased pain, and anti- inflammatory interventions. Physical Therapy Plan Frequency and Duration Frequency of Treatment 2x/Week Plan of Care Start Date 03/18/23 Plan of Care End Date 05/18/23 Therapeutic Interventions Therapeutic Interventions Gait Training,Home Exercise Program,Joint Mobilizations, Manual Therapy,Neuromuscular Re-education,Patient/Caregiver Education,Self-Care/Home Management,Soft Tissue Mobilization,Therapeutic Activities,Therapeutic Exercises Modalities Cold Pack/Ice Massage,Electric Stimulation,Hot Packs, Iontophoresis,Ultrasound Other Therapeutic Interventions Iontophoresis /c Dexamethasone , 10 mg/mL Next Visit Focus/Plan Next Note Type Treatment Note Next Visit Plan Stretching, STM, US, Ionto trial?
--- NOTE | 2023-03-18 17:09 | PT.OPPOC ---
Physical, Occupational & Speech Therapy At [facility] Current Diagnoses Posterior tibial tendinitis, right leg (03/18/23) Posterior tibial tendinitis, left leg (03/18/23) Pain in right foot (03/18/23) Pain in left foot (03/18/23) Congenital pes cavus, right foot (03/18/23) Congenital pes cavus, left foot (03/18/23) Visit Care Team Role Provider Type Blade Rodríguez MD Family Provider Physician Primary Care Provider Specialty: Internal Medicine Address: [address] [place] [address], [address], [address] Email: [email or web address] DPM Attending Provider Non-Staff Referring Provider Specialty: Podiatry Address: [address] [place] [address], [id number] Email: Plan Of Care PT-OP-T Assessment and Plan Start: 03/18/23 11:16 Freq: Status: Active Protocol: Document 03/18/23 09:45 DCW (Rec: 03/18/23 17:09 DCW [id number]) Physical Therapy Assessment Rehab Potential Rehabilitation Potential Good Evaluation Complexity Number of Personal Factors/Comorbidities 1-2 Number of Body Systems Impaired 1-2 Clinical Presentation at Evaluation Unstable Impairments Impairments Functional Activities, Functional Mobility,Gait,Pain, Soft Tissue Mobility,Tone Goals Two Impairment Pt unable to tolerate trip to grocery store without significant foot pain Alf Goal (LTG) Pt to complete trips to grocery store without increased foot or ankle pain bilaterally for two consecutive visits. LTG Duration 05/18/23 One Impairment Pt does not have an appropriate home exercise program Short Term Goal (STG) Pt to be independent and compliant with an appropriate HEP. STG Duration 04/17/23 Assessment Summary Assessment Pt presents with signs and symptoms consistent with referring diagnosis of bilateral posterior tibialis tendonitis. Pain located in a very point-specific location along length of posterior tib. Attempted some eccentric strengthening, which resulted in immediate increase in pain, so will hold off on strengthening for now. Pt instructed in stretching and calf rolling, which she felt much more comfortable with. Pt will likely benefit from continued skilled therapeutic intervention, focusing on improving soft tissue mobility , decreased pain, and anti- inflammatory interventions. Physical Therapy Plan Frequency and Duration Frequency of Treatment 2x/Week Plan of Care Start Date 03/18/23 Plan of Care End Date 05/18/23 Therapeutic Interventions Therapeutic Interventions Gait Training,Home Exercise Program,Joint Mobilizations, Manual Therapy,Neuromuscular Re-education,Patient/Caregiver Education,Self-Care/Home Management,Soft Tissue Mobilization,Therapeutic Activities,Therapeutic Exercises Modalities Cold Pack/Ice Massage,Electric Stimulation,Hot Packs, Iontophoresis,Ultrasound Other Therapeutic Interventions Iontophoresis /c Dexamethasone , 10 mg/mL Next Visit Focus/Plan Next Note Type Treatment Note Next Visit Plan Stretching, STM, US, Ionto trial? Plan of Care Dates Plan of Care Start Date 03/18/23 Plan of Care End Date 05/18/23 Electronically Signed by: Eliel Hastings, PT 03/18/23 5169 If you are in agreement with this Plan of Care, please return a signed and dated copy. I have reviewed this Plan of Care and certify that the skilled therapy services above are required to meet the patient?s needs. Physician Signature Date Printed Name and Credentials Clinical Instructor Signature Printed Name and Credentials
--- NOTE | 2023-03-21 16:07 | PT.OTN ---
Current Diagnoses Posterior tibial tendinitis, right leg (03/21/23) Posterior tibial tendinitis, left leg (03/21/23) Pain in right foot (03/21/23) Pain in left foot (03/21/23) Congenital pes cavus, right foot (03/21/23) Congenital pes cavus, left foot (03/21/23) Physical Therapy Treatment Note PT-OP-A Visit Information Start: 03/18/23 11:16 Freq: Status: Active Protocol: Document 03/21/23 15:15 DCW (Rec: 03/21/23 16:07 DCW [id number]) Out-Patient Physical Therapy Visit Information Visit Information Visit Type Treatment Note Visit Start Time 15:15 Visit Stop Time 16:00 Total Visit Minutes 45 Visit Number 2 Number of JAVA SYSTEMS ANALYST Visits 0 Evaluation Information Evaluation Date 03/18/23 PT-OP-B Current Condition Start: 03/18/23 11:16 Freq: Status: Active Protocol: Document 03/18/23 09:45 DCW (Rec: 03/18/23 17:09 DCW [id number]) Current Condition History of Current Condition Onset Date Seven months Current Complaints Bilateral foot/ankle pain History of Current Condition Pt is a 67 year old female presenting with a seven month history of foot pain. Pt reports at her daughter's wedding, she spent the entire day setting up, dancing, and tearing down the medical receptionist medical assistant area in heels, and by the end of the night, could not walk. Pt was hoping she could just let it rest and return to normal function, but after 1-2 weeks, was no better. Admits she then went onto the internet to self-diagnose and treat, but that didn't help. Was trying to perform heel raises and stretching, but decided she didn't want to hurt herself. Finally went in to be seen by a house rn, and was given orthotics, which helped quite a bit, but she continues to experience ongoing pain. Limited walking, notes it kills me to walk through the grocery store. [place], but is again very limited in her ability to perform her normal chores. Additionally, pt's recently fractured his neck, so a lot of extra work falls to pt to perform. PT-OP-C Subjective Start: 03/18/23 11:16 Freq: Status: Active Protocol: Document 03/21/23 15:15 DCW (Rec: 03/21/23 16:07 DCW [id number]) OP-PT Subjective Patient Comments Patient Comments Pt notes she is still having difficulty performing eccentric heel raises on left foot. Right foot doesn't seem to bother her. PT-OP-F Manual Assessment Start: 03/18/23 11:16 Freq: Status: Active Protocol: Document 03/18/23 09:45 DCW (Rec: 03/18/23 17:09 DCW [id number]) Manual Assessments Soft Tissue Assessment Soft Tissue Mobility Assessment Tenderness to palpation 3/4: Wincing and withdraw along entirety of bilateral posterior tib, origin to insertion, with worse pain as tendon wraps around malleoli and at the insertion point on her plantar surface bilaterally. PT-OP-K Range of Motion Start: 03/18/23 11:16 Freq: Status: Active Protocol: Document 03/18/23 09:45 DCW (Rec: 03/18/23 11:53 DCW [id number]) Ankle and Foot Goniometric Range of Motion Ankle and Foot Right Active Testing Position Sitting Dorsiflexion with Knee Flexed 20 Dorsiflexion with Knee Extended 15 Plantarflexion 40 Inversion 40 Eversion 25 Left Active Testing Position Sitting Dorsiflexion with Knee Flexed 20 Dorsiflexion with Knee Extended 15 Plantarflexion 40 Inversion 25 Eversion 20 PT-OP-Q Treatments Start: 03/18/23 11:16 Freq: Status: Active Protocol: Document 03/21/23 15:15 DCW (Rec: 03/21/23 16:07 DCW [id number]) Therapeutic Exercises Sitting Exercises Towel Scrunch Sitting Exercise Name Towel Scrunch Side bilateral Strawberry Pick-up Sitting Exercise Name Intrinsic strengthening - marble pick-up Side bilateral Ankle Flexion Sitting Exercise Name Resisted Plantar Flexion Side left Resistance Green T-band Manual Therapy Treatment Soft Tissue Mobilization Posterior Tib Body Location B Posterior tib Mobilization Type Sustained Pressure,Trigger Point Release Intensity/Depth Moderate Body Position Sitting PT-OP-R Modalities Start: 03/18/23 11:16 Freq: Status: Active Protocol: Document 03/21/23 15:15 DCW (Rec: 03/21/23 16:07 DCW [id number]) Ultrasound Therapy Treatment Medial Ankle Treatment Duration (minutes) 8 Patient Position Hooklying Coupling Medium Ultrasound Gel Applicator Size (cm2) 5 Frequency Setting (mHz) 3 Mode Setting Pulsed Duty Cycle 50% Intensity Setting (w/cm2) 0.8 Comments Bilateral medial ankle along posterior tib insertion PT-OP-T Assessment and Plan Start: 03/18/23 11:16 Freq: Status: Active Protocol: Document 03/21/23 15:15 DCW (Rec: 03/21/23 16:07 DCW [id number]) Physical Therapy Assessment Impairments Impairments Functional Activities, Functional Mobility,Gait,Pain, Soft Tissue Mobility,Tone Goals Two Impairment Pt unable to tolerate trip to grocery store without significant foot pain Fci Goal (LTG) Pt to complete trips to grocery store without increased foot or ankle pain bilaterally for two consecutive visits. LTG Duration 05/18/23 One Impairment Pt does not have an appropriate home exercise program Short Term Goal (STG) Pt to be independent and compliant with an appropriate HEP. STG Duration 04/17/23 Assessment Summary Assessment Pt felt new strengthening exercises were very beneficial , noted desire to continue working independently at home. Good tolerance to US. Physical Therapy Plan Frequency and Duration Frequency of Treatment 2x/Week Plan of Care Start Date 03/18/23 Plan of Care End Date 05/18/23 Therapeutic Interventions Therapeutic Interventions Gait Training,Home Exercise Program,Joint Mobilizations, Manual Therapy,Neuromuscular Re-education,Patient/Caregiver Education,Self-Care/Home Management,Soft Tissue Mobilization,Therapeutic Activities,Therapeutic Exercises Modalities Cold Pack/Ice Massage,Electric Stimulation,Hot Packs, Iontophoresis,Ultrasound Other Therapeutic Interventions Iontophoresis /c Dexamethasone , 10 mg/mL Next Visit Focus/Plan Next Note Type Treatment Note Next Visit Plan Stretching, STM, US, Ionto trial?
--- NOTE | 2023-06-29 10:42 | PT.OPDS ---
Current Diagnoses Posterior tibial tendinitis, right leg (03/21/23) Posterior tibial tendinitis, left leg (03/21/23) Pain in right foot (03/21/23) Pain in left foot (03/21/23) Congenital pes cavus, right foot (03/21/23) Congenital pes cavus, left foot (03/21/23) Visit Care Team Role Provider Type Blade Rodríguez MD Family Provider Physician Primary Care Provider Specialty: Internal Medicine Address: [address] [place] [address], [address], [address] Email: [email or web address] DPM Attending Provider Non-Staff Referring Provider Specialty: Podiatry Address: [address] [place] [address], [id number] Email: Visit Number Visit Number 2 Discharge Summary PT-OP-B Current Condition Start: 03/18/23 11:16 Freq: Status: Active Protocol: Document 03/18/23 09:45 DCW (Rec: 03/18/23 17:09 DCW [id number]) Current Condition History of Current Condition Onset Date Seven months Current Complaints Bilateral foot/ankle pain History of Current Condition Pt is a 67 year old female presenting with a seven month history of foot pain. Pt reports at her daughter's wedding, she spent the entire day setting up, dancing, and tearing down the admin prog coord area in heels, and by the end of the night, could not walk. Pt was hoping she could just let it rest and return to normal function, but after 1-2 weeks, was no better. Admits she then went onto the internet to self-diagnose and treat, but that didn't help. Was trying to perform heel raises and stretching, but decided she didn't want to hurt herself. Finally went in to be seen by a special forces engineer sergeant, and was given orthotics, which helped quite a bit, but she continues to experience ongoing pain. Limited walking, notes it kills me to walk through the grocery store. Also lives [place] a farm, but is again very limited in her ability to perform her normal chores. Additionally, pt's recently fractured his neck, so a lot of extra work falls to pt to perform. PT-OP-C Subjective Start: 03/18/23 11:16 Freq: Status: Active Protocol: Document 03/21/23 15:15 DCW (Rec: 03/21/23 16:07 DCW [id number]) OP-PT Subjective Patient Comments Patient Comments Pt notes she is still having difficulty performing eccentric heel raises on left foot. Right foot doesn't seem to bother her. PT-OP-F Manual Assessment Start: 03/18/23 11:16 Freq: Status: Active Protocol: Document 03/18/23 09:45 DCW (Rec: 03/18/23 17:09 DCW [id number]) Manual Assessments Soft Tissue Assessment Soft Tissue Mobility Assessment Tenderness to palpation 3/4: Wincing and withdraw along entirety of bilateral posterior tib, origin to insertion, with worse pain as tendon wraps around malleoli and at the insertion point on her plantar surface bilaterally. PT-OP-K Range of Motion Start: 03/18/23 11:16 Freq: Status: Active Protocol: Document 03/18/23 09:45 DCW (Rec: 03/18/23 11:53 DCW [id number]) Ankle and Foot Goniometric Range of Motion Ankle and Foot Right Active Testing Position Sitting Dorsiflexion with Knee Flexed 20 Dorsiflexion with Knee Extended 15 Plantarflexion 40 Inversion 40 Eversion 25 Left Active Testing Position Sitting Dorsiflexion with Knee Flexed 20 Dorsiflexion with Knee Extended 15 Plantarflexion 40 Inversion 25 Eversion 20 PT-OP-T Assessment and Plan Start: 03/18/23 11:16 Freq: Status: Active Protocol: Document 06/29/23 10:42 DCW (Rec: 06/29/23 10:42 DCW [id number]) Physical Therapy Assessment Assessment Summary Assessment Pt canceled last four scheduled visits, did not reschedule. Pt has now not been seen in more than three months. Pt will be discharged from skilled therapy, will require a new referral in order to return. Physical Therapy Plan Discharge Physical Therapy Discharge Reasons No Longer Attending PT
== END 2023-07-04 10:18 | disposition home or self-care (01) ==
LOC: PHYS 15:15
PROVIDERS: Family Provider Internal Medicine; PCP Internal Medicine; Referring Provider Podiatrist Foot & Ankle Surgery; Visit Provider Podiatrist Foot & Ankle Surgery
DX: M79.671 Pain in right foot (principal); M79.672 Pain in left foot; M76.821 Posterior tibial tendinitis, right leg; M76.822 Posterior tibial tendinitis, left leg; Q66.72 Congenital pes cavus, left foot; Q66.71 Congenital pes cavus, right foot
CPT/HCPCS: 97035; 97110; 97140; 97161

== ENCOUNTER → 2024-05-04 07:38 | Outpatient (CLI) | payer OTHER, SELFPAY ==
[2024-05-04 08:34] LABS: HEMOLYSIS < 15 (0-50); Sodium 137 mmol/L (137-145)
[2024-05-04 08:35] LABS: Alanine Aminotransferase 21 IU/L (<35); Albumin 4.2 g/dL (3.5-5.0); Albumin Globulin Ratio 1.6 (1.0-2.8); Alkaline Phosphatase 68 U/L (38-126); Aspartate Aminotransferase 27 IU/L (14-36); BUN Creatinine Ratio 24.6 (6-22); Bilirubin Total 0.8 mg/dL (0.2-1.3); Blood Urea Nitrogen 17 mg/dL (7-17); C-Reactive Protein Quant < 0.5 mg/dL (<1.0); Calcium 9.2 mg/dL (8.4-10.2); Carbon Dioxide 27 mmol/L (22-32); Chloride 104 mmol/L (98-107); Cholesterol 215 mg/dL (140-199); Estimated Glomerular Filt Rate > 60 mL/min (>60); Globulin 2.6 g/dL (1.7-4.1); Glucose 97 mg/dL (80-110); HDL Cholesterol 48 mg/dL (40-60); LDL Cholesterol Calculated 148 mg/dL (<100); Potassium 4.2 mmol/L (3.4-5.1); Total Protein 6.8 g/dL (6.3-8.2); Triglycerides 95 mg/dL (35-150)
[2024-05-04 08:47] LABS: Free T4, Direct Thyroxine 0.87 ng/dL (0.78-2.19)
[2024-05-04 09:00] LABS: Thyroid Stimulating Hormone 2.81 uIU/mL (0.47-4.68)
[2024-05-04 09:15] LABS: Erythrocyte Sedimentation Rate 4 MM/HR (0-20)
== END ==
LOC: LAB 07:38
PROVIDERS: Family Provider Internal Medicine; PCP Internal Medicine; Referring Provider Internal Medicine; Visit Provider Internal Medicine
DX: I10 Essential (primary) hypertension (principal); R74.01 Elevation of levels of liver transaminase levels; R74.02 Elevation of levels of lactic acid dehydrogenase [LDH]; E78.5 Hyperlipidemia, unspecified; E03.9 Hypothyroidism, unspecified; L65.9 Nonscarring hair loss, unspecified; L40.9 Psoriasis, unspecified
CPT/HCPCS: 36415; 80053; 80061; 84439; 84443; 84481; 85651; 86038; 86140